=== PATIENT | female | born 1940 | race Caucasian/White ===

== ENCOUNTER → 2018-02-24 13:41 | Outpatient (POV) | payer MEDICARE, SELFPAY | PROVIDERS: Family Provider Family Medicine; PCP Family Medicine; Visit Provider Dermatology | DX: Z00.00 Encounter for general adult medical examination without abnormal findings (principal) ==

== ENCOUNTER → 2018-03-24 13:46 | Outpatient (POV) | payer MEDICARE, SELFPAY | PROVIDERS: Visit Provider Dermatology | DX: Z00.00 Encounter for general adult medical examination without abnormal findings (principal) ==

== ENCOUNTER → 2018-05-26 15:37 | Outpatient (POV) | payer MEDICARE, SELFPAY | PROVIDERS: Family Provider Family Medicine; PCP Family Medicine; Visit Provider Dermatology | DX: Z00.00 Encounter for general adult medical examination without abnormal findings (principal) ==

== ENCOUNTER → 2018-06-02 13:19 | Outpatient (CLI) | payer MEDICARE, SELFPAY ==
--- NOTE | 2018-06-02 13:23 | XR_ITS ---
XR knee LT 2V HISTORY: ITS.REASON: lt knee pain ORDERING PHYSICIAN: Maico Moreno MD PATIENT AGE: 77 years COMPARISON: 05/12/2017 FINDINGS: Nonweightbearing views are performed once again showing an intramedullary erika within the distal femur stabilized by 4 screws. Status post total knee arthroplasty with good alignment of the prosthesis. There is no fracture of the distal femur. There is mild genu varus but not as prominent as the previous exam however, weightbearing views were not performed. IMPRESSION: Status post prior total knee replacement with intramedullary erika stabilizing an old distal femur fracture with mild genu varum
== END ==
PROVIDERS: PCP Family Medicine; Visit Provider Orthopaedic Surgery
DX: M25.562 Pain in left knee (principal)
CPT/HCPCS: 73560

== ENCOUNTER → 2018-06-16 13:29 | Outpatient (REF) | payer MEDICARE, SELFPAY ==
[2018-06-16 14:03] LABS: Blood Urea Nitrogen 15 mg/dL (7-18)
[2018-06-16 14:25] LABS: Aspartate Amino Transferase 11 U/L (15-37)
[2018-06-16 14:27] LABS: Alanine Aminotransferase 23 U/L (12-78); Albumin Level 3.4 gm/dL (3.4-5.0); Alkaline Phosphatase 100 U/L (46-116); Anion Gap 14.5 mEq/L (5-15); Bilirubin,Total 0.5 mg/dL (0.2-1.0); Calcium 8.4 mg/dL (8.5-10.1); Carbon Dioxide 25 mmol/L (21.0-32.0); Chloride 109 mmol/L (98-107); Chol/HDL Ratio 6.6 (1-3.5); Cholesterol 224 mg/dL (140-200); Creatinine,Serum 0.67 mg/dL (0.55-1.02); Estimated Glomerular Filt Rate 86 ml/min (>60); GFR (African American) 104 ML/MIN (>60); Globulin 3.3 gm/dl (1.3-3.2); Glucose 101 mg/dL (74-106); HDL Cholesterol 34 mg/dL (29-89); LDL Cholesterol 152 mg/dL (0-130); Potassium 3.5 mmoL/L (3.5-5.1); Sodium 145 mmol/L (136-145); Thyroid Stimulating Hormone 1.43 uIU/ml (0.358-3.740); Total Protein,Serum 6.7 gm/dL (6.4-8.2); Triglycerides 191 mg/dL (30-200); VLDL Cholesterol 38 mg/dL (0-40)
== END ==
LOC: LAB 13:29
PROVIDERS: Visit Provider Family Medicine
DX: I10 Essential (primary) hypertension (principal); I48.91 Unspecified atrial fibrillation; I20.9 Angina pectoris, unspecified; M81.0 Age-related osteoporosis without current pathological fracture
CPT/HCPCS: 80053; 80061; 84443

== ENCOUNTER → 2018-07-13 13:01 | Outpatient (CLI) | payer MEDICARE, SELFPAY ==
--- NOTE | 2018-07-13 13:03 | CA_ITS ---
PROCEDURE: 2-D M-mode and color Doppler study INDICATIONS FOR THE TEST: Chest pain X COPD Heart Murmur Tobacco Smoking Palpitations Fatigue Syncope Edema HypertensionXDiabetes Mellitus Rheumatic Fever SOBXDOE Obesity HyperlipidemiaX Family History HD Additional History CAD,ABN EKG,PPM,DIZZINESS PATIENT INFORMATION HEIGHT: 63 WEIGHT:148 GENDER: Female B/P:153/71 2-D/M-MODE INTERPRETATION: 2-D MEASUREMENTS OBSERVED VALUES IN CMS Right Ventricular Dimension (RVDd) 1.5 Interventricular Septum (Thickness)(IVsd) 1.1 Left Ventricular Internal Dimensions(LVIDd) 5.7 Left Ventricular Posterior Wall (Thickness)(LVPWd) 1.0 Aortic Root 3.7 Aortic Cusp Separation 1.9 Left Atrial Dimensions (LAD) 3.2 2D 1. Left atrium is mildly enlarged, left ventricle is normal size, mild concentric left ventricular hypertrophy, visually estimated ejection fraction 55% with no obvious regional wall motion abnormality. 2. The right atrium and right ventricle are normal size and contractility., There is a pacemaker significant atrium and right ventricle. 3. The aortic valve is thickened and calcified leaflet continue to display mobility. 4. The mitral and tricuspid valve leaflets are minimally thickened. 5. The pulmonic valve is poorly visualized. 6. No significant pericardial effusion noted. DOPPLER INTERROGATION: Doppler interrogation of the aortic, mitral and tricuspid valvular presence of moderate aortic, moderate mitral and mild tricuspid regurgitation, tricuspid regurgitant jet velocity is insufficient for calculation of the right ventricular systolic pressure, diastolic parameters are inconclusive. CONCLUSION: 1. Mildly left atrium, normal left ventricular size, mild concentric left ventricular hypertrophy, visually estimated ejection fraction 55% with no obvious regional wall motion abnormality, diastolic parameters are inconclusive. There is abnormal septal motion. 2. Moderate aortic, mitral and mild tricuspid regurgitation 3. No significant pericardial effusion noted.
== END ==
PROVIDERS: Family Provider Family Medicine; PCP Family Medicine; Visit Provider Internal Medicine
DX: R06.00 Dyspnea, unspecified (principal); R53.83 Other fatigue; R94.31 Abnormal electrocardiogram [ECG] [EKG]; I25.2 Old myocardial infarction
CPT/HCPCS: 93306

== ENCOUNTER → 2019-04-14 13:00 | Outpatient (CLI) | payer MEDICARE, SELFPAY ==
--- NOTE | 2019-04-14 13:04 | XR_ITS ---
XR hand RT min 3V, XR hand LT min 3V HISTORY: Chronic Right and left hand pain. Hard spot second metacarpal right hand . At left hand weightbearing would not come off ORDERING PHYSICIAN: Amairani Chan MD PATIENT AGE: 78 years COMPARISON: No studies prior to today TECHNIQUE: PA, Oblique and Lateral of Both Right and Left Hand performed RIGHT HAND: Diffuse demineralization of both hands. No acute findings. No fracture nor dislocation. No discrete erosive or destructive changes. . Narrowing at the DIP joints> PIP joints reflecting osteoarthritic changes . Metacarpals intact. Attention is directed to the second metacarpal and I see no discrete abnormalities here nor soft tissue findings to correspond with the palpable density near second metacarpal-as was suggested by history. Borderline narrowing at the fifth MCP joint and first MCP joint. Conclusion right wrist reveals Carpals with normal relationships. Joint spaces well-maintained throughout the carpal and radiocarpal joint right wrist IMPRESSION: right hand.: Osteoarthritic changes at DIP>PIPjoints . Diffuse mineralization LEFT HAND: No fracture or acute findings. The arthritic changes are more pronounced here at the left hand than right. Marked narrowing at DIP joint joint of the long finger with subchondral cystic changes about markedly narrowed joint. Basically ityk-mi-klan appearance at this joint There is also marked narrowing and near cmyl-xs-hvef appearance at the DIP joint of the ring finger. Less pronounced narrowing at the DIP joint of the index and fifth finger. Also less pronounced arthritic changes & Narrowing is seen at the PIP joints of left hand-with most pronounced joint space narrowing fourth PIP joint followed by the fifth PIP joint... Mild second and third narrowing PIP joint Metacarpals appear intact. Wrist included-The carpals joint space is actually fairly well-maintained throughout the radiocarpal joint intact . Small osseous density between the first and second metacarpal base on lateral view likely reflecting long-standing dystrophic or vascular calcification. Only minimal degenerative changes at first carpal metacarpal joint bilaterally. Less than typically seen with osteoarthritis pattern. IMPRESSION.... Left hand..... Arthritic changes changes at DIP & PIP joints, overall more pronounced at the LEFT hand than right . Most likely arthritic changes most severe arthritic changes with subchondral cyst &/ or possibly erosive Osteoarthritis features seen at the DIP joint of the long finger. Basically puvy-vi-uhje appearance at DIP joint of both long finger & ring Finger Left hand
--- NOTE | 2019-04-14 13:04 | XR_ITS ---
XR hand RT min 3V, XR hand LT min 3V HISTORY: Chronic Right and left hand pain. Hard spot second metacarpal right hand . At left hand weightbearing would not come off ORDERING PHYSICIAN: Amairani Chan MD PATIENT AGE: 78 years COMPARISON: No studies prior to today TECHNIQUE: PA, Oblique and Lateral of Both Right and Left Hand performed RIGHT HAND: Diffuse demineralization of both hands. No acute findings. No fracture nor dislocation. No discrete erosive or destructive changes. . Narrowing at the DIP joints> PIP joints reflecting osteoarthritic changes . Metacarpals intact. Attention is directed to the second metacarpal and I see no discrete abnormalities here nor soft tissue findings to correspond with the palpable density near second metacarpal-as was suggested by history. Borderline narrowing at the fifth MCP joint and first MCP joint. Conclusion right wrist reveals Carpals with normal relationships. Joint spaces well-maintained throughout the carpal and radiocarpal joint right wrist IMPRESSION: right hand.: Osteoarthritic changes at DIP>PIPjoints . Diffuse mineralization LEFT HAND: No fracture or acute findings. The arthritic changes are more pronounced here at the left hand than right. Marked narrowing at DIP joint joint of the long finger with subchondral cystic changes about markedly narrowed joint. Basically iica-yq-cteb appearance at this joint There is also marked narrowing and near bnza-uz-ekhv appearance at the DIP joint of the ring finger. Less pronounced narrowing at the DIP joint of the index and fifth finger. Also less pronounced arthritic changes & Narrowing is seen at the PIP joints of left hand-with most pronounced joint space narrowing fourth PIP joint followed by the fifth PIP joint... Mild second and third narrowing PIP joint Metacarpals appear intact. Wrist included-The carpals joint space is actually fairly well-maintained throughout the radiocarpal joint intact . Small osseous density between the first and second metacarpal base on lateral view likely reflecting long-standing dystrophic or vascular calcification. Only minimal degenerative changes at first carpal metacarpal joint bilaterally. Less than typically seen with osteoarthritis pattern. IMPRESSION.... Left hand..... Arthritic changes changes at DIP & PIP joints, overall more pronounced at the LEFT hand than right . Most likely arthritic changes most severe arthritic changes with subchondral cyst &/ or possibly erosive Osteoarthritis features seen at the DIP joint of the long finger. Basically lbre-nd-tinx appearance at DIP joint of both long finger & ring Finger Left hand
== END ==
PROVIDERS: PCP Family Medicine; Visit Provider Orthopaedic Surgery
DX: M79.641 Pain in right hand (principal); M79.642 Pain in left hand
CPT/HCPCS: 73130

== ENCOUNTER → 2019-05-22 14:28 | Outpatient (POV) | payer MEDICARE, SELFPAY | PROVIDERS: Visit Provider Specialist | DX: R20.0 Anesthesia of skin (principal); M79.602 Pain in left arm; M79.601 Pain in right arm | CPT/HCPCS: 95886; 95908 ==

== ENCOUNTER → 2019-06-02 09:58 | Outpatient (CLI) | payer MEDICARE, SELFPAY ==
--- NOTE | 2019-06-02 10:09 | MM_ITS ---
MM Dig screening mamm BI w/CAD CAD Screening COMPARISON: None, previous mammograms are not available for review INDICATION: There is a history of breast cancer patient maternal aunt. TECHNIQUE: Standard CC and MLO images were obtained. R2 CAD reviewed. FINDINGS: Mild to moderate fibroglandular densities are seen in the central portions and upper outer quadrants of both breasts and the findings are fairly symmetrical bilaterally. There are benign-appearing calcifications in each breast along with arterial calcification right breast. There are mole markers on each breast. There is no suspicious lesion and there are no suspicious microcalcifications. IMPRESSION: Mild to moderate breast density with no suspicious lesion seen BI-RADS Category: 2 Benign Finding(s) RECOMMENDED FOLLOW-UP: 1YR - 1 YEAR FOLLOW-UP (A letter has been sent to the patient regarding results of the study.)
--- NOTE | 2019-06-02 10:11 | XR_ITS ---
XR DEXA axial skeleton COMPARISON: None HISTORY: Postmenopausal, history of fracture as an adult TECHNIQUE: DEXA scanning lumbar spine and bilateral hips FINDINGS: The average BMD L1-L4 lumbar spine is 0.668 g/sq cm and the T score is -4.3. Left hip: The total BMD left hip is 0.5 to 3 g/sq cm with a T score -3.8. The left femoral neck is 0.555 g/sq cm with T score -3.5. IMPRESSION: T score is in the osteoporosis range and definitely consider treatment and suggest a follow-up study in one year to assess response to treatment.
== END ==
PROVIDERS: PCP Family Medicine; Visit Provider Family Medicine
DX: Z12.31 Encounter for screening mammogram for malignant neoplasm of breast (principal); Z78.0 Asymptomatic menopausal state
CPT/HCPCS: 77067; 77080

== ENCOUNTER → 2019-06-16 14:06 | Outpatient (CLI) | payer MEDICARE, SELFPAY ==
--- NOTE | 2019-06-16 14:19 | XR_ITS ---
XR elbow RT min 3V HISTORY: ITS.REASON: elbow pain ORDERING PHYSICIAN: Amairani Chan MD PATIENT AGE: 78 years COMPARISON: None FINDINGS: There is mild osteopenia. There is orthopedic hardware with compression plate and fixation screws along the medial distal humerus. The alignment and joint spaces appear to be normal. There is ossific density with corticated margins just medial to the radial head. There is no joint effusion or acute fracture. Impression: Distal humeral surgery. Medial bone density could be heterotopic bone formation or sequela from prior surgery.
--- NOTE | 2019-06-16 14:19 | XR_ITS ---
XR shoulder RT min 2V HISTORY: ITS.REASON: shoulder pain ORDERING PHYSICIAN: Amairani Chan MD PATIENT AGE: 78 years Comparison: None FINDINGS: There is generalized moderate osteopenia. Joint spaces are normal. There is no acute fracture or subluxation. There are stable calcific densities in right lung which were also seen chest film from 06/22/2017. Soft tissues are unremarkable. Impression: Osteopenia. No acute process. Stable benign right lung calcifications.
== END ==
PROVIDERS: PCP Family Medicine; Visit Provider Orthopaedic Surgery
DX: M25.521 Pain in right elbow; M25.511 Pain in right shoulder
CPT/HCPCS: 73030; 73080

== ENCOUNTER 2020-06-25 13:01 | Outpatient (RCR) | payer MEDICARE, SELFPAY | END 2020-07-23 10:49 | disposition home or self-care (01) | LOC: PT 13:01 | PROVIDERS: PCP Family Medicine; Visit Provider Family Medicine | DX: J44.9 Chronic obstructive pulmonary disease, unspecified (principal); M15.0 Primary generalized (osteo)arthritis; Z74.09 Other reduced mobility | CPT/HCPCS: 97542 ==

== ENCOUNTER 2021-05-01 19:56 | Observation (INO) | payer MEDICARE, SELFPAY ==
--- NOTE | 2021-05-01 19:39 | ECG_ITS ---
APPROVED REPORT Exam: Resting ECG HR:95 bpm ECG Measurements Heart Rate 95 AXES AL 176 P 53 QRSd 186 QRS -45 QT 436 T 113 QTc 547 Conclusion Electronic ventricular pacemaker Electronically signed by : Adriel Kebede, 05/03/2021 10:54:44
[2021-05-01 19:56] VITALS: BP 162/79; PULSE 95; RESP 21; TEMP 36.4; O2SAT 90; BMI 24.7
--- NOTE | 2021-05-01 20:05 | XR_ITS ---
PROCEDURE INFORMATION: Exam: XR Chest Exam date and time: 05/01/2021 8:05 PM Age: 80 years old Clinical indication: Angina; Patient HX: Chest pain; Additional info: Cp TECHNIQUE: Imaging protocol: XR of the chest. Views: 1 view. COMPARISON: CR CXR1 CHEST-PORTABLE 06/22/2017 8:47 PM. Prior report not available. FINDINGS: Tubes, catheters and devices: Overlying oxygen tubing and cardiac electrodes. Lungs: There is chronic nodular density projected over the right upper lung of approximately 1.6 cm, minimally enlarged compared with 1.4 cm on the previous study from 2016, probably chronic granulomatous change and scarring, less likely an indolent neoplasm. This would be more accurately evaluated with CT. No other definite mass or consolidation. Mild hypoventilation/low lung volumes with bilateral infrahilar bronchovascular crowding. Pleural spaces: Unremarkable. No significant pleural effusion. No pneumothorax. Heart/Mediastinum: Cardiomegaly. Dual lead left subclavian cardiac pacemaker. Vasculature: Tortuous or ectatic thoracic aorta with calcified plaque. Bones/joints: Osteopenia. Spinal degenerative changes. Gastrointestinal tract: Gaseous distention of bowel noted in the upper abdomen. No free intraperitoneal/subdiaphragmatic air seen. IMPRESSION: 1. A hazy nodular 1.6 cm density projected over the right upper lung, minimally enlarged compared with 06/22/2017. This is probably chronic granulomatous change and scarring, less likely would be indolent neoplasm or active infection. Previous chest CTA images and report are not available for comparison. 2. Cardiomegaly, cardiac pacemaker. No definite vascular congestion. 3. Additional nonemergency and chronic findings as above.
[2021-05-01 20:17] LABS: Adenovirus,PCR Not Detected (NotDetected); Bordetella Pertussis Not Detected (NotDetected); Chlamydophila Pneumoniae, PCR Not Detected (NotDetected); Coronavirus 19, PCR Not Detected (NotDetected); Coronavirus 229E Not Detected (NotDetected); Coronavirus NL63 Not Detected (NotDetected); Coronavirus OC43 Not Detected (NotDetected); Coronovirus HKU1,PCR Not Detected (NotDetected); Human Metapneumovirus Not Detected (NotDetected); Influenza A, PCR Not Detected (NotDetected); Influenza AH1, 2009 Not Detected (NotDetected); Influenza AH1, PCR Not Detected (NotDetected); Influenza AH3,PCR Not Detected (NotDetected); Influenza B, PCR Not Detected (NotDetected); Mycoplasma Pneumoniae, PCR Not Detected (NotDetected); Parainfluenza 1, PCR Not Detected (NotDetected); Parainfluenza 2, PCR Not Detected (NotDetected); Parainfluenza 3, PCR Not Detected (NotDetected); Parainfluenza 4, PCR Not Detected (NotDetected); Respiratory Syncytial Virus Not Detected (NotDetected); Rhinovirus/Enterovirus Not Detected (NotDetected)
[2021-05-01 20:19] LABS: Basophils # 0.1 K/mm3 (0-0.2); Basophils % 0.6 % (0.1-2.0); Eosinophils # 0.1 K/mm3 (0.0-0.4); Eosinophils % 1.8 % (0.1-12.0); Hematocrit 41.4 % (37.0-47.0); Hemoglobin 14.3 g/dL (12.2-16.2); Mean Corpuscular HGB Conc 34.5 g/dL (31.8-35.4); Mean Corpuscular Hemoglobin 32.7 pg (27.0-31.2); Mean Corpuscular Volume 94.9 fl (81-99); Monocytes # 0.3 K/mm3 (0.1-1.0); Monocytes % 3.7 % (1.7-9.3); Neutrophils # 4.5 K/mm3 (1.8-7.8); Neutrophils % 56.9 % (37.0-80.0); Platelet Count 250 K/mm3 (142-424); Red Blood Count 4.36 M/mm3 (4.20-5.40); Red Cell Distribution Width 14.2 % (11.5-17.5)
[2021-05-01 20:22] LABS: Alanine Aminotransferase 19 U/L (12-78); Albumin Level 4.6 g/dl (3.5-5.0); Alkaline Phosphatase 130 U/L (38-126); Anion Gap 15.2 mEq/L (5-15); Aspartate Amino Transferase 35 U/L (14-36); Bilirubin,Direct 0.9 mg/dl (0.0-0.4); Bilirubin,Indirect 0.2 mg/dL (0.0-0.9); Bilirubin,Total 1.1 mg/dl (0.2-1.3); Bilirubin,Unconjugated 0.2 mg/dL (0.0-1.1); Blood Urea Nitrogen 12 mg/dl (7-17); Calcium 8.9 mg/dl (8.4-10.2); Carbon Dioxide 24 mmol/L (22.0-30.0); Chloride 108 mmol/L (98-107); Creatinine Clearance Estimated 46 mL/min (50-200); Estimated Glomerular Filt Rate 81 ml/min (>60); GFR (African American) 98 ML/MIN (>60); Glucose 112 mg/dl (74-100); Potassium 4.2 mmoL/L (3.5-5.1); Sodium 143 mmol/L (136-145); Total Protein,Serum 7.9 g/dl (6.3-8.2)
[2021-05-01 20:27] LABS: C-Reactive Protein 9.9 mg/L (0-4)
--- NOTE | 2021-05-01 20:29 | HMH.EDCP ---
ED Disposition Clinical Impression: Unstable angina pectoris Disposition: Admitted as Observation Condition on Discharge: Good Referrals: Barber Yousif MD [Primary Care Provider] - - Critical Care Critical Care Time: No Attestation: On 05/01/21, the high probability of a clinically significant, sudden or life threatening deterioration of the following system(s) required my full and direct attention, intervention and personal management. The time I documented below is in addition to time spent performing reported procedures but includes the following listed in this critical care notation. Medical Decision Making - Medical Records Medical records reviewed: Yes: I reviewed the patient's medical records. - Rafael Inquiry Pt receiving controlled substance: No Vital Signs: 05/01/21 19:56 Temperature 97.6 F Temperature Source Oral Pulse Rate [Apical] 95 H Respiratory Rate 21 Blood Pressure [Left Arm] 162/79 H Blood Pressure Mean [Left Arm] 106 Blood Pressure Source [Left Arm] Automatic Cuff Blood Pressure Position [Left Arm] Sitting 02 Sat by Pulse Oximetry 90 L Oxygen Delivery Method Room Air - Lab Data Lab results reviewed: Yes: I reviewed the patient's lab results. Lab Results 05/01/21 20:00: WBC 8.0, RBC 4.36, Hgb 14.3, Hct 41.4, MCV 94.9, MCH 32.7 H, MCHC 34.5, RDW 14.2, Plt Count 250, MPV 8.0, Neut % (Auto) 56.9, Lymph % (Auto) 37.0, [place] % (Auto) 3.7, Eos % (Auto) 1.8, Baso % (Auto) 0.6, Neut # (Auto) 4.5, Lymph # (Auto) 3.0, [place] # (Auto) 0.3, Eos # (Auto) 0.1, Baso # (Auto) 0.1, ESR 40 H 05/01/21 20:00: Sodium 143, Potassium 4.2, Chloride 108 H, Carbon Dioxide 24, Anion Gap 15.2 H, BUN 12, Creatinine 0.70, Estimated Creat Clear 46, Estimated GFR 81, Est GFR ( Amer) 98, Glucose 112 H, Calcium 8.9, Total Bilirubin 1.1, Direct Bilirubin 0.9 H, Conjugated Bilirubin 0.0, Indirect Bilirubin 0.2, Unconjugated Bilirubin 0.2, AST 35, ALT 19, Alkaline Phosphatase 130 H, Troponin I < 0.01, C-Reactive Protein 9.9 H, Total Protein 7.9, Albumin 4.6, Procalcitonin 0.055 Result diagrams: 05/01/21 20:00 05/01/21 20:00 Orders (Tests/Meds): ED MEDICATIONS Generic Name Dose Route Start Last Admin Trade Name Freq PRN Reason Stop Dose Admin Sodium Chloride 1,000 mls @ 999 mls/hr 05/01/21 20:15 05/01/21 20:20 Sod Chlor 0.9% 1000ml Bag IV 05/01/21 21:15 999 mls/hr .Q1H1M GRISEL Administration Discontinued Medications Generic Name Dose Route Start Last Admin Trade Name Freq PRN Reason Stop Dose Admin Aspirin 324 mg 05/01/21 20:20 05/01/21 20:05 Aspirin 81mg Chewable Tablet PO 05/01/21 20:21 324 mg ONCE ONE Administration Nitroglycerin 1 gm 05/01/21 20:13 05/01/21 20:20 Nitroglycerin 1 Gm Ointment TD 05/01/21 20:14 1 gm ONCE ONE Administration ORDERS Category Date Time Status BNP [Brain Natriuretic Peptide] Stat Lab 05/01/21 20:00 Received Full Resp Panel w/COVID ([facility]) Routine Lab 05/01/21 20:00 Received Lactic Acid Stat Lab 05/01/21 20:05 Ordered Troponin I Q3H Lab 05/01/21 23:15 Ordered Troponin I Q3H Lab 05/02/21 02:15 Ordered Blood Culture Stat Micro 05/01/21 20:05 Ordered - Radiology Data #1 Image(s): Chest Image Reviewed: Yes I reviewed the patient's radiology image Preliminary Findings: Abnormal (chronic changes ) - ECG Data Tracing #1 Arrhythmias present: other (paced) - Physician Consults Physician Consulted: dejah Reason -: Admission Medical Decision Narrative: pt with chest pain and will be admitted for card eval Chest Pain HPI - General Chief Complaint: Chest Pain Stated Complaint: Chest Pain Time Seen by Provider: 05/01/21 20:00 Mode of Arrival: Family Vehicle Source of Information: Patient, Medical Record Limitations: No Limitations Description of Symptoms (Recalled from ER Triage Doc. by RN): Pt c/o chest pain and soa that started this morning. She is unsure of what time and did not come to ED
[2021-05-01 20:30] VITALS: BP 170/95; PULSE 91; RESP 14; O2SAT 94
[2021-05-01 20:39] LABS: Troponin I < 0.01 ng/ml (0.00-0.034)
[2021-05-01 20:42] LABS: Procalcitonin 0.055 ng/mL (0.0-2.0)
[2021-05-01 20:44] LABS: Erythrocyte Sedimentation Rate 40 mm/hr (0-30)
[2021-05-01 21:00] VITALS: BP 155/77; PULSE 94; RESP 18; O2SAT 96
[2021-05-01 21:17] LABS: NT Pro Brain Natriuretic Pep. 1260 pg/mL (0-450)
[2021-05-01 21:30] VITALS: BP 154/84; PULSE 94; RESP 18; O2SAT 95
--- NOTE | 2021-05-01 21:59 | PC.NURSE ---
Pt does not know what medication she takes and staff is unable to verify with external pharmacy or pt's visitor at bedside.
--- NOTE | 2021-05-01 22:44 | PC.NURSE ---
Report called to ORION Spangler at this time.
[2021-05-01 22:46] VITALS: BP 134/83; PULSE 89; RESP 20; TEMP 36.6; O2SAT 96
[2021-05-01 22:46] LABS: Microscopic, Urine URINE MICROSCOPIC (MICROSCOPIC)
[2021-05-01 22:47] LABS: Bilirubin,Urine Negative (Negative); Blood, Urine Negative (Negative); Color,Urine YELLOW (Yellow); Glucose,Urine (UA) Negative (Negative); Ketones,Urine Negative (Negative); Leukocyte Esterase,Urine 2+ (Negative); Nitrate,Urine POSITIVE (Negative); PH,Urine 5.5 (5.0-8.5); Protein,Urine Negative (Negative); Specific Gravity, Urine 1.025 (1.005-1.030); Urobilinogen,Urine 0.2 EU/dl (0.2)
[2021-05-01 22:50] LABS: Appearance,Urine Cloudy (Clear)
[2021-05-01 22:55] LABS: Bacteria,Urine 4+ /lpf
[2021-05-01 23:04] VITALS: BP 148/72; PULSE 85; RESP 18; TEMP 36.4; O2SAT 96; BMI 25.2
--- NOTE | 2021-05-01 23:04 | PC.NURSE ---
PT ARRIVED TO FLOOR VIA W/C FROM ED W/STAFF AT 2303
[2021-05-01 23:56] LABS: Troponin I < 0.01 ng/ml (0.00-0.034)
[2021-05-02] VITALS: PULSE 77
[2021-05-02 02:39] LABS: Troponin I < 0.01 ng/ml (0.00-0.034)
[2021-05-02 03:27] VITALS: BP 139/75; PULSE 78; RESP 18; TEMP 36.5; O2SAT 95
[2021-05-02 03:28] VITALS: RESP 18
[2021-05-02 04:00] VITALS: PULSE 70
--- NOTE | 2021-05-02 04:40 | PC.NURSE ---
pt admitted with chest pain. telemetry reads paced. pt reports pain and prn meds given without relief. new orders obtained and given with relief. alert and oriented. iv patent and infusing. standby assist with ambulation. vss. call light in reach. will continue to monitor
[2021-05-02 05:21] VITALS: BMI 25.4
--- NOTE | 2021-05-02 06:00 | PC.NURSE ---
Kelsi STANLEY NOTIFIED OF CONSULT.
[2021-05-02 06:12] LABS: Chloride 110 mmol/L (98-107); Sodium 140 mmol/L (136-145)
[2021-05-02 06:13] LABS: Potassium 3.6 mmoL/L (3.5-5.1)
[2021-05-02 06:16] LABS: Anion Gap 10.6 mEq/L (5-15); Blood Urea Nitrogen 13 mg/dl (7-17); Calcium 8.3 mg/dl (8.4-10.2); Carbon Dioxide 23 mmol/L (22.0-30.0); Creatinine Clearance Estimated 48 mL/min (50-200); Estimated Glomerular Filt Rate 81 ml/min (>60); GFR (African American) 98 ML/MIN (>60); Glucose 106 mg/dl (74-100)
[2021-05-02 06:25] LABS: Basophils # 0.1 K/mm3 (0-0.2); Basophils % 0.6 % (0.1-2.0); Eosinophils # 0.2 K/mm3 (0.0-0.4); Eosinophils % 2.1 % (0.1-12.0); Hematocrit 36.1 % (37.0-47.0); Lymphocytes # 2.5 K/mm3 (0.7-4.5); Lymphocytes % 31.1 % (10-50); Mean Corpuscular HGB Conc 34.2 g/dL (31.8-35.4); Mean Corpuscular Hemoglobin 32.6 pg (27.0-31.2); Mean Corpuscular Volume 95.3 fl (81-99); Mean Platelet Volume 8.1 fl (7.4-10.4); Monocytes # 0.3 K/mm3 (0.1-1.0); Neutrophils # 4.9 K/mm3 (1.8-7.8); Neutrophils % 62.1 % (37.0-80.0); Platelet Count 208 K/mm3 (142-424); Red Blood Count 3.79 M/mm3 (4.20-5.40); Red Cell Distribution Width 14.3 % (11.5-17.5); White Blood Count 7.9 K/mm3 (4.8-10.8)
--- NOTE | 2021-05-02 07:21 | HMH.CNCARD ---
History of Present Illness Consult date: 05/02/21 Consult reason: chest pain Chief complaint: chest pain Additional Medical History:: 1. COPD A. Denies tobacco use. B. Secondhand smoke exposure 2. Severe Anxiety 3. Hyperlipidemia 4. AAA, 5.2 cm, 2014 (per patient) A. Ultrasound, 04/2016, normal. 5. hypertension A. Echo, 2018, 1. Mildly left atrium, normal left ventricular size, mild concentric left ventricular hypertrophy, visually estimated ejection fraction 55% with no obvious regional wall motion abnormality, diastolic parameters are inconclusive. There is abnormal septal motion. 2. Moderate aortic, mitral and mild tricuspid regurgitation 3. No significant pericardial effusion noted 6. CVA in past 7. CAD A. [facility], 2017 ANGIOGRAPHIC RESULTS: 1. The left main artery large caliber and normal 2. The left anterior descending artery proximally has mild luminal irregularities of 10% with mild luminal irregularities of 10% in the mid segment 3. The circumflex artery is a dominant vessel and has mild less than 10% luminal irregularities 4. The right coronary artery is a nondominant vestigial vessel which has a 90% stenosis just proximal to 2 very small marginal branches. A Kugel collateral is identified from the sinoatrial branch distally. The ostium of this right coronary artery is 2.5 mm however the proximal right coronary artery is 0.5 mm and at the stenotic area it is less than 1 mm in diameter 5. The HINDS ventriculogram reveals hyperdynamic 75% 6. The left ventricular end-diastolic pressure 10 mmHg IMPRESSION: 1. Mild luminal irregularities in the LAD and dominant circumflex artery 2. Severe stenosis and a very small vestigial nondominant right coronary artery which is clinically insignificant 3. Slightly hyperdynamic ejection fraction 4. Normal left ventricular end-diastolic pressur PLAN: 1. Medical management 2. Risk factor modification 3. I cannot manage in any clinical scenario in which performing angioplasty of the small right coronary artery would exist. 8. Pacemaker in situ, 05/2018, due to symptomatic bradycardia History of present illness: 80-year-old white female with known coronary artery disease by cardiac catheterization 2016 with recommendation for medical therapy and mild to moderate aortic regurgitation on echocardiogram from 2018 was admitted last evening for progressive chest pain. Patient states she took nitroglycerin at home without significant relief and came to the emergency department when the chest pain continued. Initial troponin was normal and EKG nondiagnostic due to paced rhythm. Nitroglycerin paste was placed and symptoms did resolve overnight. With no recurrence occurring this morning. Troponins have been normal x3. Patient was last seen in our office in 2018 and has been seeing cardiology in [place] due to plans for potential surgery of her left leg. She reports having an echocardiogram earlier this year and being told of leaky valves but no need for further intervention at that time. Patient also relates about a 6-month history of increasing fatigue that is quite troubling to her. She is on chronic oxygen therapy due to COPD related to secondhand smoke. [facility] History Medical History: Reports:: Asthma, Cancer, Congestive Heart Failure, Chronic Obstructive Pulmonary Disease (COPD), Cerebrovascular Accident, Gastroesophageal Reflux Disease(GERD), Hyperlipidemia, Hypertension, Transient Ischemic Attacks (TIA) Denies:: Diabetes Mellitus Type 1, Diabetes Mellitus Type 2 *Have you ever received a pneumonia vaccine?: No *Have you received a flu vaccine this season?: No Other Medical History: Reports: Anemia, Arthritis, Other Laterality Cases: Bilateral: Tonsillectomy Other Surgeries: Yes: Cancer Surgery, Cholecystectomy, Hysterectomy-Total Fractures: Yes - *Social History Smoking Status: Never smoker Alcohol Intake: never Alcohol Intake Frequency:: other Substance Use Type:
[2021-05-02 07:50] VITALS: BP 139/77; PULSE 74; RESP 18; TEMP 36.7; O2SAT 96
[2021-05-02 08:00] VITALS: PULSE 70
--- NOTE | 2021-05-02 08:36 | P.CONPHA_ITS ---
[facility] Pharmacy VTE Monitoring - Patient Demographics Admission date: 05/02/21 Report Date: 05/02/21 Time: 08:37 Allergies/Adverse Reactions: Patient Allergies coconut [From COCONUT (FOOD/DRUG)] Allergy (Intermediate, Verified 06/16/19 13:09) I-RASH codeine Allergy (Intermediate, Verified 06/16/19 13:09) I-RASH, NAUSEA/VOMITING Penicillins Allergy (Intermediate, Verified 06/16/19 13:09) I-RASH tuna oil Allergy (Verified 05/02/21 07:45) Rash levofloxacin Adverse Reaction (Mild, Verified 06/16/19 13:09) NA-NAUSEA/VOMITING Height: 1.6 m Weight: 65.317 kg Patient Problems: Current Active Problems Unstable angina pectoris (Acute) Hyperlipidemia (Chronic) Hypertensive disorder (Chronic) Coronary arteriosclerosis (Chronic) - VTE Risk Labs: VTE Related Lab Results Hgb 14.3 g/dL (12.2-16.2) 05/01/21 20:00 Hct 36.1 % (37.0-47.0) L 05/02/21 05:42 Plt Count 208 K/mm3 (142-424) 05/02/21 05:42 BUN 13 mg/dl (7-17) 05/02/21 05:42 Creatinine 0.70 mg/dl (0.52-1.04) 05/02/21 05:42 Estimated Creat Clear 48 mL/min (50-200) 05/02/21 05:42 Was VTE Risk Assessment Performed: Yes VTE Score: 4 VTE Risk Level: Low Risk Clinical Trial Participant: No - Prophylaxis VTE Prophylaxis Ordered?: Yes Types of VTE Prophylaxis: TEDS Knee High
[2021-05-02 08:58] LABS: Hemoglobin 12.3 g/dL (12.2-16.2)
--- NOTE | 2021-05-02 11:06 | HMH.HPDC ---
<Jessie Feng - Last Filed: 05/02/21 11:06> General - General Admission date:: 05/01/21 Discharge date: 05/02/21 *Admission Date: 05/02/21 *Chief complaint: chest pain *History of present illness: Ms. Basurto is a 80 year old female with known coronary artery disease by cardiac cath in 2017. She also had mild to moderate aortic regurgitation seen on an echo in 2018. She states she always has chest pain but 2 nights ago the pain was worse than normal. It was all on the left side of her chest. It did go away but came back again last night. It radiated up into her neck and down her left arm and through to her back. She took nitroglycerin with no relief and she therefore presented to the emergency room for evaluation. Her troponins were normal and her EKG was nondiagnostic. Nitroglycerin paste was placed and she had no further chest pain overnight. She is followed by Dr. Parson in [place] and last saw her on March 21. She does not have a another scheduled follow-up appointment. [facility] History I have reviewed the patient's past medical history: Yes Medical History: Reports:: Asthma, Cancer, Congestive Heart Failure, Chronic Obstructive Pulmonary Disease (COPD), Coronary Artery Disease, Cerebrovascular Accident, Gastroesophageal Reflux Disease(GERD), Hyperlipidemia, Hypertension, Transient Ischemic Attacks (TIA) Denies:: Diabetes Mellitus Type 1, Diabetes Mellitus Type 2 *Have you ever received a pneumonia vaccine?: No *Have you received a flu vaccine this season?: No Other Medical History: Reports: Anemia, Arthritis, Other Laterality Cases: Bilateral: Tonsillectomy Other Surgeries: Yes: Cancer Surgery, Cholecystectomy, Hysterectomy-Total Fractures: Yes - *Social History Smoking Status: Never smoker Alcohol Intake: never Alcohol Intake Frequency:: other Substance Use Type: denies use *Occupational Status:: retired Housing: house Household Members: none *Travel in the last 8 weeks: None Family Hx:: Cancer, Heart Attack Review of Systems - Constitutional Reports fatigue, Reports weakness, Denies fever(s) - Eyes Denies blurry vision, Denies double vision - ENT Denies nasal congestion, Denies sore throat - *Cardiovascular Reports chest pain, Reports shortness of breath, Reports radiating jaw, neck or arm pain - *Respiratory Reports cough, Reports shortness of breath - *Gastrointestinal Denies abdominal pain, Denies loose stools, Denies nausea, Denies vomiting - *Genitourinary Denies difficulty urinating, Denies painful urination - *Musculoskeletal Denies joint pain - *Neurologic Reports headache(s), Reports weakness, Denies localized weakness, Denies dizziness Exam Vital signs and Labs for Last 24 Hours: Temp Pulse Resp BP Pulse Ox 98.0 F 74 18 139/77 96 05/02/21 07:50 05/02/21 07:50 05/02/21 07:50 05/02/21 07:50 05/02/21 07:50 Laboratory Results - last 24 hr 05/01/21 20:00: Chlamy pneumoniae PCR Not detected, Adenovirus (PCR) Not detected, B. pertussis DNA (PCR) Not detected, Coronavirus OC43 (PCR) Not detected, Coronavirus HKU1 (PCR) Not detected, Coronavirus 229E (PCR) Not detected, SARS-CoV-2 (PCR) Not detected, Coronavirus NL63 (PCR) Not detected, Human Metapneumovir PCR Not detected, Influenza A (H1) PCR Not detected, Influ A (H1N1/09) PCR Not detected, Influenza A (H3) PCR Not detected, Influenza Type A (PCR) Not detected, Influenza Type B (PCR) Not detected, M. pneumoniae (PCR) Not detected, Parainfluenza 1 (PCR) Not detected, Parainfluenza 2 (PCR) Not detected, Parainfluenza 3 (PCR) Not detected, Parainfluenza 4 (PCR) Not detected, RSV (PCR) Not detected, Entero/Rhino (PCR) Not detected 05/01/21 20:00: WBC 8.0, RBC 4.36, Hgb 14.3, Hct 41.4, MCV 94.9, MCH 32.7 H, MCHC 34.5, RDW 14.2, Plt Count 250, MPV 8.0, Neut % (Auto) 56.9, Lymph % (Auto) 37.0, [place] % (Auto) 3.7, Eos % (Auto) 1.8, Baso % (Auto) 0.6, Neut # (Auto) 4.5, Lymph # (Auto) 3.0, [place] # (Auto) 0.3, Eos # (Auto) 0.1, Baso
== END 2021-05-02 10:37 | disposition home or self-care (01) ==
LOC: ER 21:03 → 2ND 23:07
PROVIDERS: Admitting Provider Family Medicine; Emergency Provider Emergency Medicine; PCP Family Medicine; Visit Provider Family Medicine
DX: I25.110 Atherosclerotic heart disease of native coronary artery with unstable angina pectoris (principal); I11.0 Hypertensive heart disease with heart failure; I50.9 Heart failure, unspecified; Z95.0 Presence of cardiac pacemaker; Z86.73 Personal history of transient ischemic attack (TIA), and cerebral infarction without residual deficits; E78.5 Hyperlipidemia, unspecified; K21.9 Gastro-esophageal reflux disease without esophagitis; J44.9 Chronic obstructive pulmonary disease, unspecified; Z79.899 Other long term (current) drug therapy; Z99.81 Dependence on supplemental oxygen; N39.0 Urinary tract infection, site not specified
CPT/HCPCS: 36415; 71045; 80048; 80076; 81001; 83605; 83880; 84145; 84484; 85025; 85651; 86140; 87040; 87086; 87088; 87186; 87581; 87633; 87798; 93005; 93306; 96365; 99284; G0378

== ENCOUNTER → 2021-07-09 09:24 | Outpatient (CLI) | payer MEDICARE, SELFPAY ==
--- NOTE | 2021-07-09 09:27 | US_ITS ---
PROCEDURE: US ABD. AORTA SCREENING CLINICAL INDICATION: known AAA COMPARISON: CT CTAC CTA-CHEST from 06/22/2017 FINDINGS: The abdominal aorta is not well delineated due to overlying bowel gas. Segments of the aorta have an unremarkable appearance at approximately 2 cm in diameter. If there is indeed a history of aneurysm then would suggest CT for further evaluation. IMPRESSION: Limited evaluation of the aorta with no obvious aneurysm. Consider CT for further evaluation Dictated by: Sahil Banks MD 07/09/2021 16:37 Sahil Banks MD in [place] 07/09/2021 16:37
[2021-07-09 12:24] LABS: Chloride 108 mmol/L (98-107)
[2021-07-09 12:25] LABS: Potassium 4.3 mmoL/L (3.5-5.1); Sodium 143 mmol/L (136-145)
[2021-07-09 12:28] LABS: Anion Gap 14.3 mEq/L (5-15); Blood Urea Nitrogen 15 mg/dl (7-17); Calcium 9.1 mg/dl (8.4-10.2); Carbon Dioxide 25 mmol/L (22.0-30.0); Estimated Glomerular Filt Rate 81 ml/min (>60); GFR (African American) 98 ML/MIN (>60); Glucose 112 mg/dl (74-100)
[2021-07-09 12:36] LABS: NT Pro Brain Natriuretic Pep. 219 pg/mL (0-450)
== END ==
LOC: RAD 09:27
PROVIDERS: PCP Family Medicine; Visit Provider Internal Medicine Cardiovascular Disease
DX: E78.5 Hyperlipidemia, unspecified (principal); I10 Essential (primary) hypertension; I20.9 Angina pectoris, unspecified; I71.4 Abdominal aortic aneurysm, without rupture; Z95.0 Presence of cardiac pacemaker; R06.02 Shortness of breath
CPT/HCPCS: 36415; 76705; 80048; 83880

== ENCOUNTER 2021-07-21 22:30 | Emergency (ER) | payer MEDICARE, SELFPAY ==
[2021-07-21 22:31] VITALS: BP 169/86; PULSE 97; RESP 24; TEMP 36.6; O2SAT 92; BMI 24.7
--- NOTE | 2021-07-21 22:43 | ECG_ITS ---
APPROVED REPORT Exam: Resting ECG HR:100 bpm ECG Measurements Heart Rate 100 AXES AZ 172 P 38 QRSd 192 QRS -49 QT 426 T 109 QTc 549 Conclusion Electronic ventricular pacemaker Electronically signed by : Adriel Kebede MD 07/22/2021 12:07:20
[2021-07-21 23:08] LABS: Basophils # 0.1 K/mm3 (0-0.2); Basophils % 0.9 % (0.1-2.0); Eosinophils # 0.2 K/mm3 (0.0-0.4); Eosinophils % 1.7 % (0.1-12.0); Hematocrit 44.3 % (37.0-47.0); Hemoglobin 14.8 g/dL (12.2-16.2); Lymphocytes # 2.4 K/mm3 (0.7-4.5); Mean Corpuscular HGB Conc 33.5 g/dL (31.8-35.4); Mean Corpuscular Volume 98.7 fl (81-99); Mean Platelet Volume 8.1 fl (7.4-10.4); Monocytes # 0.3 K/mm3 (0.1-1.0); Monocytes % 3.2 % (1.7-9.3); Neutrophils % 70.1 % (37.0-80.0); Platelet Count 270 K/mm3 (142-424); Red Blood Count 4.49 M/mm3 (4.20-5.40); Red Cell Distribution Width 14.2 % (11.5-17.5)
--- NOTE | 2021-07-21 23:13 | HMH.EDSOB ---
ED Disposition Clinical Impression: History of cardiac pacemaker in situ, SOB (shortness of breath) Disposition: Left Against Medical Advice Condition on Discharge: Good Instructions: DI for Shortness of Breath Additional Instructions: call pcp in am Referrals: Barber Yousif MD [Primary Care Provider] - - Critical Care Critical Care Time: No Attestation: On 07/21/21, the high probability of a clinically significant, sudden or life threatening deterioration of the following system(s) required my full and direct attention, intervention and personal management. The time I documented below is in addition to time spent performing reported procedures but includes the following listed in this critical care notation. Medical Decision Making - Medical Records Medical records reviewed: Yes: I reviewed the patient's medical records. - Rafael Inquiry Pt receiving controlled substance: No Vital Signs: 07/21/21 22:31 07/21/21 23:19 Temperature 97.8 F 97.8 F Temperature Source Oral Oral Pulse Rate 83 Pulse Rate [Right] 97 H Respiratory Rate 24 18 Blood Pressure 172/82 H Blood Pressure [Right Arm] 169/86 H Blood Pressure Mean [Right Arm] 113 02 Sat by Pulse Oximetry 92 L Oxygen Delivery Method Room Air Room Air - Lab Data Lab results reviewed: Yes: I reviewed the patient's lab results. Lab Results 07/21/21 22:50: WBC 10.0, RBC 4.49, Hgb 14.8, Hct 44.3, MCV 98.7, MCH 33.0 H, MCHC 33.5, RDW 14.2, Plt Count 270, MPV 8.1, Neut % (Auto) 70.1, Lymph % (Auto) 24.0, [place] % (Auto) 3.2, Eos % (Auto) 1.7, Baso % (Auto) 0.9, Neut # (Auto) 7.0, Lymph # (Auto) 2.4, [place] # (Auto) 0.3, Eos # (Auto) 0.2, Baso # (Auto) 0.1, ESR 39 H 07/21/21 22:50: Sodium 144, Potassium 3.6, Chloride 106, Carbon Dioxide 26, Anion Gap 15.6 H, BUN 11, Creatinine 0.70, Estimated Creat Clear 46, Estimated GFR 81, Est GFR ( Amer) 98, Glucose 133 H, Calcium 9.1, Total Bilirubin 0.5, AST 30, ALT 27, Alkaline Phosphatase 100, Troponin I 0.01, C-Reactive Protein 10.6 H, Total Protein 7.7, Albumin 4.4, Globulin 3.3 H, Albumin/Globulin Ratio 1.3, Procalcitonin 0.069 07/21/21 22:50: Lactate 2.0 Result diagrams: 07/21/21 22:50 07/21/21 22:50 Orders (Tests/Meds): ED MEDICATIONS Discontinued Medications Generic Name Dose Route Start Last Admin Trade Name Freq PRN Reason Stop Dose Admin Sodium Chloride 1,000 mls @ 999 mls/hr 07/21/21 23:15 07/21/21 23:04 Sod Chlor 0.9% 1000ml Bag IV 07/22/21 00:15 999 mls/hr .Q1H1M GRISEL Administration Methylprednisolone Sodium Succinate 125 mg 07/21/21 23:01 07/21/21 23:04 Methylprednisolone Sod Succ 125mg Vial IV 07/21/21 23:02 125 mg ONCE ONE Administration ORDERS Category Date Time Status Blood Culture Stat Micro 07/21/21 22:50 Received - ECG Data Tracing #1 Arrhythmias present: other (paced) - SABRA Score for Non-Stemi Age of Patient: 70-79 years old Heart Rate: 90-109 bpm Systolic Blood Pressure: 160-199 mmHg Serum Creatinine: 0.40-0.79 mg/dl CHF [place] Class: I-No CHF Other Risk Factors: None Non-Stemi Risk Score: 104 Resp/SOB HPI - General Chief Complaint: Shortness of Breath/Dyspnea Stated Complaint: SOA vomitting Time Seen by Provider: 07/21/21 23:13 Mode of Arrival: Wheelchair Source of Information: Patient, Medical Record Limitations: No Limitations Description of Symptoms (Recalled from ER Triage Doc. by RN): pt c/o SOA, chills x 2 days - History of Present Illness MD Complaint: shortness of breath Onset (ago): day(s) Severity: moderate Consistency/Duration: intermittent Associated symptoms: denies other symptoms - Related Data Home oxygen amount: none Home Medications Medication Instructions Recorded Confirmed albuterol sulfate 2 mg tablet 2 mg PO QID 04/14/18 07/21/21 enalapril maleate 5 mg tablet 5 mg PO BID 04/14/18 07/21/21 fluticasone 100 mcg-salmeterol 50 1 puff INHALATION BID 04/14/18 07/21/21 mcg/dose blistr
[2021-07-21 23:17] LABS: Alanine Aminotransferase 27 U/L (12-78); Albumin Level 4.4 g/dl (3.5-5.0); Albumin/Globulin Ratio 1.3 (1.1-1.8); Alkaline Phosphatase 100 U/L (38-126); Anion Gap 15.6 mEq/L (5-15); Aspartate Amino Transferase 30 U/L (14-36); Bilirubin,Total 0.5 mg/dl (0.2-1.3); Blood Urea Nitrogen 11 mg/dl (7-17); Calcium 9.1 mg/dl (8.4-10.2); Carbon Dioxide 26 mmol/L (22.0-30.0); Chloride 106 mmol/L (98-107); Creatinine Clearance Estimated 46 mL/min (50-200); Estimated Glomerular Filt Rate 81 ml/min (>60); GFR (African American) 98 ML/MIN (>60); Globulin 3.3 g/dL (1.3-3.2); Glucose 133 mg/dl (74-100); Potassium 3.6 mmoL/L (3.5-5.1); Sodium 144 mmol/L (136-145); Total Protein,Serum 7.7 g/dl (6.3-8.2)
[2021-07-21 23:19] VITALS: BP 172/82; PULSE 83; RESP 18; TEMP 36.6; O2SAT 93
[2021-07-21 23:22] LABS: C-Reactive Protein 10.6 mg/L (0-4)
[2021-07-21 23:33] LABS: Troponin I 0.01 ng/ml (0.00-0.034)
[2021-07-21 23:37] LABS: Procalcitonin 0.069 ng/mL (0.0-2.0)
[2021-07-21 23:39] LABS: Erythrocyte Sedimentation Rate 39 mm/hr (0-30)
== END 2021-07-21 23:56 | disposition left against medical advice (07) ==
PROVIDERS: Emergency Provider Emergency Medicine; PCP Family Medicine
DX: R06.02 Shortness of breath (principal); Z95.0 Presence of cardiac pacemaker; J44.9 Chronic obstructive pulmonary disease, unspecified; I50.9 Heart failure, unspecified; K21.9 Gastro-esophageal reflux disease without esophagitis; E78.5 Hyperlipidemia, unspecified; I10 Essential (primary) hypertension; I25.10 Atherosclerotic heart disease of native coronary artery without angina pectoris
CPT/HCPCS: G0463; 80053; 83605; 84145; 84484; 85025; 85651; 86140; 87040; 93005; 99211

== ENCOUNTER → 2021-08-08 10:26 | Outpatient (CLI) | payer MEDICARE, SELFPAY ==
--- NOTE | 2021-08-08 10:31 | CT_ITS ---
Procedure: CT ANGIO ABDOMEN PELVIS CLINICAL HISTORY: chest pain/dyspnea Aortic aneurysm evaluation COMPARISON: No exams were available for comparison TECHNIQUE: IV Contrast: 100ml Isovue 370 Axial images obtained with sagittal and coronal reformats. All CT scans at the facility use one or more dose reduction, viz: automated exposure control, ma/kV adjustment per patient size (including targeted exams where dose is matched to indication, i.e. head), or iterative reconstruction technique. FINDINGS: Pacemaker artifact. There are multiple hypodense hepatic lesions in both lobes of the liver the largest in the left hepatic lobe at approximately 1 cm segment 4A. There is mild thickening of the antrum of the stomach which could be due to nondistention or due to gastritis. The spleen, adrenal glands, pancreas, and kidneys have an unremarkable appearance. No intestinal obstruction or free air. There is a small umbilical hernia containing fat. The descending colon does not lying in the pericolic gutter as normally seen with the pericolic gutter on the left in occupied by small bowel. No evidence of abdominal aortic aneurysm. There is atherosclerotic calcification of the abdominal aorta. No stenosis. Atherosclerotic changes are present involving the renal arteries but no significant stenosis. The celiac artery and SMA have an unremarkable appearance. The CHAD is patent. No iliac stenosis. Sclerotic focus is present involving the left acetabular roof at 11 mm possibly due to a bone island. IMPRESSION: No evidence of abdominal aortic aneurysm. Multiple hepatic hypodensities possibly due to cyst. Ultrasound may confirm cystic nature. Thickening of the antrum of the stomach nonspecific and may be due to nondistention or gastritis. Dictated by: Sahil Banks MD 08/11/2021 08:49 Sahil Banks MD in [place] 08/11/2021 08:49
--- NOTE | 2021-08-08 10:31 | CT_ITS ---
PROCEDURE: CT ANGIO CHEST PE PROTOCOL CLINCIAL INDICATION: chest pain/dyspnea COMPARISON: CT CTAC CTA-CHEST from 06/22/2017 TECHNIQUE: IV Contrast: 70ML Isovue 370 Axial images obtained with sagittal and coronal reformats. All CT scans at the facility use one or more dose reduction, viz: automated exposure control, ma/kV adjustment per patient size (including targeted exams where dose is matched to indication, i.e. head), or iterative reconstruction technique. FINDINGS: HEART AND MEDIASTINAL STRUCTURES: No evidence of pulmonary embolus. No evidence aortic aneurysm. No mediastinal or hilar mass or adenopathy. There is a small hiatal hernia. LUNGS AND PLEURAL SPACES: Calcified nodule right upper lobe unchanged. Faint mosaic ground-glass attenuation once again noted. No suspicious nodules effusions or consolidation. Bony structures: Corrugated appearance multiple thoracic and lumbar vertebra suggesting hemangioma involvement. This is most prominent at T7-T11 and L2. UPPER ABDOMEN: See abdomen report ADDITIONAL FINDINGS: No other significant abnormalities. IMPRESSION: Overall no significant change from 06/22/2017. No evidence of pulmonary embolus. Persistent mosaic attenuation of the lungs which is nonspecific but could be seen with small airway disease such as asthma or bronchitis. Dictated by: Sahil Banks MD 08/11/2021 08:39 Sahil Banks MD in [place] 08/11/2021 08:39
[2021-08-08 11:34] LABS: Blood Urea Nitrogen 14 mg/dl (7-17)
[2021-08-08 11:35] LABS: Estimated Glomerular Filt Rate 96 ml/min (>60); GFR (African American) 117 ML/MIN (>60)
== END ==
PROVIDERS: PCP Family Medicine; Visit Provider Internal Medicine Cardiovascular Disease
DX: E78.2 Mixed hyperlipidemia (principal); I10 Essential (primary) hypertension; I20.9 Angina pectoris, unspecified; R06.02 Shortness of breath; Z95.0 Presence of cardiac pacemaker
CPT/HCPCS: 36415; 71275; 74174; 82565; 84520; Q9967

== ENCOUNTER 2025-01-29 16:20 | Emergency (ER) | payer MEDICARE, SELFPAY ==
[2025-01-29 16:23] VITALS: BP 157/82; PULSE 97; RESP 18; TEMP 36.8; O2SAT 100; BMI 24.0
--- NOTE | 2025-01-29 16:28 | XR_ITS ---
PROCEDURE INFORMATION: Exam: XR Left Hip Exam date and time: 01/29/2025 5:12 PM Age: 84 years old Clinical indication: Injury or trauma; Fall; Blunt trauma (contusions or hematomas); Left; Hip; Additional info: Fall left hip pain TECHNIQUE: Imaging protocol: Radiologic exam of the left hip. Views: 2 or 3 views hip with pelvis when performed. COMPARISON: CR XR FEMUR LT 2V 01/29/2025 5:13 PM FINDINGS: Bones/joints: Moderate degenerative changes of hip. No acute fracture. Soft tissues: Unremarkable. IMPRESSION: No acute findings. Degenerative changes.
--- NOTE | 2025-01-29 16:28 | XR_ITS ---
PROCEDURE INFORMATION: Exam: XR Left Femur Exam date and time: 01/29/2025 5:13 PM Age: 84 years old Clinical indication: Injury or trauma; Fall; Blunt trauma; Thigh or upper leg; Left; Additional info: Fall left hip pain TECHNIQUE: Imaging protocol: Radiologic exam of the left femur. Views: 2 views. COMPARISON: CR XR HIP LT 2-3V W/PELVIS 01/29/2025 5:12 PM FINDINGS: Bones/joints: Knee arthroplasty/replacement. No acute fracture. Anatomic alignment. Osteopenia. Soft tissues: Unremarkable. IMPRESSION: No acute findings.
--- NOTE | 2025-01-29 18:24 | HMH.EDGENADL ---
Discharge Plan Disposition Patient Disposition: Home, Self-Care Condition: Good Prescriptions Prescriptions: No Action No Known Home Medications Referrals Follow up/Referrals: Barber Yousif MD [Primary Care Provider] - See instructions Activity Restrictions/Add. Instructions Additional Instructions/Restrictions: Patient has been accepted to [facility] emergency department ER to ER by Dr. Mcintyre Clinical Impressions Clinical Impression: Closed sacral fracture Qualifiers: Encounter type: initial encounter Zone of sacrum fracture: unspecified portion of sacrum Qualified Code(s): S32.10XA - Unspecified fracture of sacrum, initial encounter for closed fracture Injury of left iliac artery Qualifiers: Encounter type: initial encounter Qualified Code(s): S35.512A - Injury of left iliac artery, initial encounter Stand Alone Forms Stand Alone Forms: Transfer Record - ED Print Language Print Language: Comoran Discharge ED Provider: Sindy Montoya General Adult HPI <GERALDO Camarena - Last Filed: 01/29/25 21:18> General Chief complaint: Fall Stated complaint: FALL, HIP PAIN Time Seen by Provider: 01/29/25 18:24 Mode of Arrival: EMS Description of Symptoms (Recalled from ER Triage Doc. by RN): Pt presents from home via [facility] for evaluation of left hip pain after having a fall yesterday. No obvious signs of injuries. Pt states she was walking, and her left leg gave out on her. -LOC/BT, rates pain as a 6/10 History of Present Illness HPI narrative: Patient presents for evaluation of a fall. Patient reports that she was walking to her apartment and spilled her coffee. She then slipped on the liquid landing on her butt. Patient however was able to ambulate afterwards and since but it began hurting more today so she came to the ER for evaluation. She denies striking her head losing her consciousness any numbness tingling focal neurologic deficits loss of bowel or bladder function chest pain shortness of breath fever chills hemoptysis hematochezia melena nausea vomiting diarrhea.. Related Data Home Medications ?Medication ?Instructions ?Recorded ?Confirmed No Known Home Medications 11/02/22 11/02/22 Allergies Allergy/AdvReac Type Severity Reaction Status Date / Time coconut (From COCONUT Allergy Intermediate I-RASH Verified 11/02/22 15:02 (FOOD/DRUG)) codeine Allergy Intermediate I-RASH, Verified 11/02/22 15:02 NAUSEA/VOMITING Penicillins Allergy Intermediate I-RASH Verified 11/02/22 15:02 tuna oil Allergy Rash Verified 11/02/22 15:02 levofloxacin AdvReac Mild NA-NAUSEA/V Verified 11/02/22 15:02 OMITING PFSH <GERALDO Camarena - Last Filed: 01/29/25 21:18> PFS Disclaimer: The information contained in this section may have been updated after the patient was seen, as this information can be updated by other users. Medical History (Updated 01/29/25 @ 21:18 by GERALDO Camarena) Tinnitus Right ear pain Hearing Loss Impacted cerumen of right ear Depression Anxiety Asthma Hiatal hernia History of cardiac pacemaker in situ Hyperlipidemia Hypertensive disorder Coronary arteriosclerosis Surgical History History of cardiac cath Family History Mother Hypertension Hyperlipidemia Stroke Father Hypertension Hyperlipidemia Stroke Sister Hypertension Hyperlipidemia Kidney disease Brother Hyperlipidemia Social History Smoking Status: Unknown if ever smoked second hand exposure: Yes alcohol intake: never counseling provided: none substance use type: denies use current occupational status: retired Travel in the last 8 weeks: Inside the [place] household members: none housing: house Have you lived/traveled outside [place] in past 30 days?: No Contact w/someone who lives/traveled outside US past 30 days?: No Exposure to someone with infectious disease in past 14 days?: No Do you have a fever (greater than 100.4 F or 38 C)?: No Have you tested positive for COVID-19: No Exposed to someone with COVID-19 in past 14 days?: No Do you have a sore throat?: No Do you have a cough?: No Do you have any weakness?: No Do you have any diarrhea?: No Are you experiencing any unusual bleeding?: No Do you have any muscle aches/pain?: No Do you have any abdominal pain?: No Are you experiencing loss of taste or smell?: No Other Medical History Have you received the Flu Vaccine for this season: No Have you received the Pneumonia Vaccine: Yes <GERALDO Camarena - Last Filed: 01/29/25 21:18> ROS Obtained: Yes Systems reviewed as appropriate & no additional complaints except as documented Physical Exam <GERALDO Camarena - Last Filed: 01/29/25 21:18> General General appearance: alert and in no apparent distress Respiratory Respiratory exam: Present normal lung sounds bilaterally Cardiovascular Cardiovascular exam: Present regular rate Neurological Exam Neurological exam: Present alert and oriented X3 Medical Decision Making <GERALDO Camarena - Last Filed: 01/29/25 21:18> Medical Records Medical records reviewed: Yes I reviewed the patient's medical records. Screening: Per USPSTF and CDC recommendations, given the prevalence of disease in our region, it is our hospital?s policy to screen for HIV and viral Hepatitis for all patients aged 18 and over and those with ongoing risk factors. Rafael Inquiry Pt receiving controlled substance: No Vital Signs: 01/29/25 16:23 01/29/25 21:18 01/29/25 21:58 Temperature 98.2 F 97.9 F Temperature Source Oral Pulse Rate 104 H Pulse Rate [Left Dorsalis Pedis] 103 H Pulse Rate [Right] 97 H 103 H Respiratory Rate 18 20 Blood Pressure 176/98 H Blood Pressure [Right Arm] 157/82 H Blood Pressure Mean [Right Arm] 107 Blood Pressure Source [Right Arm] Automatic Cuff Blood Pressure Position [Right Arm] Sitting 02 Sat by Pulse Oximetry 100 Oxygen Delivery Method Room Air Nasal Cannula Oxygen Flow Rate (LPM) 2 Lab Data Lab results reviewed: Yes I reviewed the patient's lab results. Orders (Tests/Meds): ED MEDICATIONS Discontinued Medications Generic Name Dose Route Start Last Admin Trade Name Freq PRN Reason Stop Dose Admin Acetaminophen 1,000 mg 01/29/25 18:36 01/29/25 18:41 Acetaminophen 500mg Tab PO 01/29/25 18:37 1,000 mg ONCE ONE Administration Lidocaine 1 each 01/29/25 18:36 01/29/25 18:41 Lidocaine 5% Transdermal Patch TP 01/29/25 18:37 1 each ONCE ONE Administration Ondansetron HCl 4 mg 01/29/25 18:36 01/29/25 18:41 Ondansetron 4mg Odt SL 01/29/25 18:37 4 mg ONCE ONE Administration ORDERS Category Date Time Status CT bony pelvis Stat Cat Scan 01/29/25 18:[address] cervical spine wo con Stat Cat Scan 01/29/25 18:[address] head/brain wo con Stat Cat Scan 01/29/25 18:[address] lumbar spine wo con Stat Cat Scan 01/29/25 18:[address] thoracic spine wo con Stat Cat Scan 01/29/25 18:37 Completed Femur XR left 2 views [XR femur LT 2V] Stat Exams 01/29/25 16:28 Completed XR hip LT 2-3V w/pelvis Stat Exams 01/29/25 16:28 Completed Medical Decision Narrative: In summary patient is a 84-year-old female who presents to the emergency department for evaluation of fall and left hip pain. Patient is dynamically stable upon arrival, afebrile. Zickel exam is remarkable for tenderness to palpation actually in the posterior hip area/gluteus without palpable bony deformity ecchymosis contusions abrasions. Patient is neurovascularly intact distally. Patient actually can ambulate and bear weight in the emergency department.. Differential diagnosis includes contusion versus hip fracture versus pelvic fracture versus spinal fracture etc. Initial workup will be conducted with ED trauma scans of the spines in the head without contrast as well as the bony pelvis given the patient's advanced age. Initial interventions include Tylenol and Lidoderm patch. Initial workup reviewed by me and my informal interpretation of her plain film and CT imaging shows sacral fracture with no other bony no abnormality intracranial head injury or spine fracture prior to radiology read. However had interactive discussion with radiologist regarding patient's imaging and he sees very worrisome signs of an iliac artery rupture immediately adjacent to the sacral fracture. Upon repeat evaluation patient reported reduction in her pain and distal extremity is still warm pulses are palpable. Given the radiographic findings I have had an interactive discussion with Dr. Mcintyre with the [facility] transfer center regarding patient SUNSHINE findings and management and she has been accepted in transfer ER to ER for further evaluation and care. Patient will be leaving by air ambulance due to the significant injury and potential serious complications. <Sindy Montoya, DO - Last Filed: 01/29/25 23:13> Vital Signs: 01/29/25 16:23 01/29/25 21:18 01/29/25 21:58 Temperature 98.2 F 97.9 F Temperature Source Oral Pulse Rate 104 H Pulse Rate [Left Dorsalis Pedis] 103 H Pulse Rate [Right] 97 H 103 H Respiratory Rate 18 20 Blood Pressure 176/98 H Blood Pressure [Right Arm] 157/82 H Blood Pressure Mean [Right Arm] 107 Blood Pressure Source [Right Arm] Automatic Cuff Blood Pressure Position [Right Arm] Sitting 02 Sat by Pulse Oximetry 100 Oxygen Delivery Method Room Air Nasal Cannula Oxygen Flow Rate (LPM) 2 Orders (Tests/Meds): ED MEDICATIONS Discontinued Medications Generic Name Dose Route Start Last Admin Trade Name Urvashi PRN Reason Stop Dose Admin Acetaminophen 1,000 mg 01/29/25 18:36 01/29/25 18:41 Acetaminophen 500mg Tab PO 01/29/25 18:37 1,000 mg ONCE ONE Administration Lidocaine 1 each 01/29/25 18:36 01/29/25 18:41 Lidocaine 5% Transdermal Patch TP 01/29/25 18:37 1 each ONCE ONE Administration Ondansetron HCl 4 mg 01/29/25 18:36 01/29/25 18:41 Ondansetron 4mg Odt SL 01/29/25 18:37 4 mg ONCE ONE Administration ORDERS Category Date Time Status CT bony pelvis Stat Cat Scan 01/29/25 18:[address] cervical spine wo con Stat Cat Scan 01/29/25 18:[address] head/brain wo con Stat Cat Scan 01/29/25 18:[address] lumbar spine wo con Stat Cat Scan 01/29/25 18:[address] thoracic spine wo con Stat Cat Scan 01/29/25 18:37 Completed Femur XR left 2 views [XR femur LT 2V] Stat Exams 01/29/25 16:28 Completed XR hip LT 2-3V w/pelvis Stat Exams 01/29/25 16:28 Completed Medical Decision Narrative: In summary patient is a 84-year-old female who presents to the emergency department for evaluation of fall and left hip pain. Patient is dynamically stable upon arrival, afebrile. Zickel exam is remarkable for tenderness to palpation actually in the posterior hip area/gluteus without palpable bony deformity ecchymosis contusions abrasions. Patient is neurovascularly intact distally. Patient actually can ambulate and bear weight in the emergency department.. Differential diagnosis includes contusion versus hip fracture versus pelvic fracture versus spinal fracture etc. Initial workup will be conducted with ED trauma scans of the spines in the head without contrast as well as the bony pelvis given the patient's advanced age. Initial interventions include Tylenol and Lidoderm patch. Initial workup reviewed by me and my informal interpretation of her plain film and CT imaging shows sacral fracture with no other bony no abnormality intracranial head injury or spine fracture prior to radiology read. However had interactive discussion with radiologist regarding patient's imaging and he sees very worrisome signs of an iliac artery rupture immediately adjacent to the sacral fracture. Upon repeat evaluation patient reported reduction in her pain and distal extremity is still warm pulses are palpable. Given the radiographic findings I have had an interactive discussion with Dr. Mcintyre with the [facility] transfer [place] regarding patient SUNSHINE findings and management and she has been accepted in transfer ER to ER for further evaluation and care. Patient will be leaving by air ambulance due to the significant injury and potential serious complications. DO Jan: I was consulted by the [facility], and we discussed the complexity of the problems being addressed. I approved the treatment and management plan for this patient's care in the emergency department, thus performing a substantive portion of the medical decision making. Patient stable, resting comfortably on multiple repeat assessments requesting to go home. She had benign abdominal exam with only complaints of sacral pain after a mechanical fall. X-ray was negative on an independent interpretation by myself, so noncontrasted scans of the head, spines, and pelvis were obtained. CT scan concerning for sacral fracture with concern for possible iliac artery injury. I considered obtaining angiograms to further assess here, however I did not want to delay definitive transfer to trauma center. Given this, was called and after interactive discussion accepted the patient. She was transported there in stable condition. Sindy Montoya DO Critical Care <GERALDO Camarena - Last Filed: 01/29/25 21:18> Critical Care Time Critical Care Time: No <Sindy Montoya DO - Last Filed: 01/29/25 23:13> Critical Care Time Critical Care Time: Yes Attestation: On 01/29/25, the high probability of a clinically significant, sudden or life threatening deterioration of the following system(s) required my full and direct attention, intervention and personal management. The time I documented below is in addition to time spent performing reported procedures but includes the following listed in this critical care notation. Total Time Total Critical Care Time: 35
--- NOTE | 2025-01-29 18:31 | PC.NURSE ---
DON AT BEDSIDE ASSESSING PATIENT. INFORMED PATIENT THAT SRNA CALLED HER DAUGHTER SHE REQUESTED AND SHE STATED SHE DID NOT PLAN TO COME TO [facility] AT THIS TIME.
--- NOTE | 2025-01-29 18:37 | CT_ITS ---
PROCEDURE INFORMATION: Exam: CT Lumbar Spine Without Contrast Exam date and time: 01/29/2025 6:12 PM Age: 84 years old Clinical indication: Injury or trauma; Other: Trauma, critical injury suspected; Blunt trauma (contusions or hematomas) TECHNIQUE: Imaging protocol: Computed tomography of the lumbar spine without contrast. Radiation optimization: All CT scans at this facility use at least one of these dose optimization techniques: automated exposure control; mA and/or kV adjustment per patient size (includes targeted exams where dose is matched to clinical indication); or iterative reconstruction. COMPARISON: CT ANGIO ABDOMEN PELVIS 08/08/2021 12:06 PM FINDINGS: Bones/joints: Unremarkable lumbar spine finding for acute findings. Mildly displaced, comminuted, intra-articular left sacral fractures. No obvious sacroiliac joint diastasis. Osteopenia. Vasculature: Asymmetric dilatation of left common iliac artery at bifurcation level measuring 2.2 x 2.1 cm with poorly defined perivascular fat stranding (series 4, image 89). Soft tissues: Unremarkable. IMPRESSION: 1. No acute findings in lumbar spine. 2. Left iliac arterial enlargement with perivesicular fat stranding. With clinical history and sacral fractures, suspicious for at least injury/partial rupture.
--- NOTE | 2025-01-29 18:37 | CT_ITS ---
PROCEDURE INFORMATION: Exam: CT Head Without Contrast Exam date and time: 01/29/2025 6:08 PM Age: 84 years old Clinical indication: Injury or trauma; Fall; Blunt trauma (contusions or hematomas); Additional info: Trauma, critical injury suspected TECHNIQUE: Imaging protocol: Computed tomography of the head without contrast. Radiation optimization: All CT scans at this facility use at least one of these dose optimization techniques: automated exposure control; mA and/or kV adjustment per patient size (includes targeted exams where dose is matched to clinical indication); or iterative reconstruction. COMPARISON: No relevant prior studies available. FINDINGS: Brain: No hemorrhage. Underlying periventricular white matter changes and parenchymal cortical volume loss. No mass effect. Cerebral ventricles: No ventriculomegaly. Paranasal sinuses: Visualized sinuses are unremarkable. No fluid levels. Mastoid air cells: Visualized mastoid air cells are well aerated. Bones: Unremarkable. No acute fracture. Soft tissues: Unremarkable. IMPRESSION: No acute intracranial abnormality.
--- NOTE | 2025-01-29 18:37 | CT_ITS ---
PROCEDURE INFORMATION: Exam: CT Cervical Spine Without Contrast Exam date and time: 01/29/2025 6:12 PM Age: 84 years old Clinical indication: Injury or trauma; Fall; Blunt trauma; Additional info: Trauma, critical injury suspected TECHNIQUE: Imaging protocol: Computed tomography of the cervical spine without contrast. Radiation optimization: All CT scans at this facility use at least one of these dose optimization techniques: automated exposure control; mA and/or kV adjustment per patient size (includes targeted exams where dose is matched to clinical indication); or iterative reconstruction. COMPARISON: CT CERVICAL SPINE WO CON 01/29/2025 6:12 PM FINDINGS: Bones: No acute fracture. Normal alignment. Multilevel degenerative. Vertebral body heights. Probable C4 vertebral body bone island. Osteopenia. Lungs: Unremarkable Soft tissues: Unremarkable. IMPRESSION: No acute findings.
--- NOTE | 2025-01-29 18:37 | CT_ITS ---
PROCEDURE INFORMATION: Exam: CT Pelvis Without Contrast, Skeleton Exam date and time: 01/29/2025 6:18 PM Age: 84 years old Clinical indication: Injury or trauma; Other: Trauma, critical injury suspected; Blunt trauma (contusions or hematomas); Does not apply TECHNIQUE: Imaging protocol: Computed tomography of the pelvis without contrast. Exam focused on the skeleton. Radiation optimization: All CT scans at this facility use at least one of these dose optimization techniques: automated exposure control; mA and/or kV adjustment per patient size (includes targeted exams where dose is matched to clinical indication); or iterative reconstruction. COMPARISON: CT ANGIO ABDOMEN PELVIS 08/08/2021 12:06 PM FINDINGS: Vasculature: Asymmetric dilatation of left common iliac artery at bifurcation level measuring 2.2 x 2.1 cm with poorly defined perivascular fat stranding (series 4, image 54). Bones/joints: Mildly displaced, comminuted, intra-articular left sacral fractures. No obvious sacroiliac joint. Osteopenia. Soft tissues: Unremarkable. IMPRESSION: Left iliac arterial enlargement with perivesicular fat stranding. With clinical history and sacral fractures, suspicious for at least injury/partial rupture.
--- NOTE | 2025-01-29 18:37 | CT_ITS ---
PROCEDURE INFORMATION: Exam: CT Thoracic Spine Without Contrast Exam date and time: 01/29/2025 6:12 PM Age: 84 years old Clinical indication: Injury or trauma; Other: Trauma, critical injury suspected; Blunt trauma (contusions or hematomas) TECHNIQUE: Imaging protocol: Computed tomography of the thoracic spine without contrast. Radiation optimization: All CT scans at this facility use at least one of these dose optimization techniques: automated exposure control; mA and/or kV adjustment per patient size (includes targeted exams where dose is matched to clinical indication); or iterative reconstruction. COMPARISON: CT ANGIO CHEST PE PROTOCOL 08/08/2021 12:06 PM FINDINGS: Bones/joints: No acute fracture. Normal alignment. Soft tissues: Unremarkable. Lungs: Similar defined partially calcified lesion in right upper lobe (series 4, image 48). Patchy air trapping throughout both lungs. IMPRESSION: 1. Unremarkable CT Spine. 2. Similar right upper lobar calcified lesion. Pulmonary air trapping.
[2025-01-29] MEDS: ACETAMINOPHEN 500MG TAB 1000 MG PO (18:41)
[2025-01-29] MEDS: ONDANSETRON 4MG ODT 4 MG SL (18:41)
[2025-01-29] MEDS: LIDOCAINE 5% TRANSDERMAL PATCH 1 EACH TP (18:41)
--- NOTE | 2025-01-29 19:22 | PC.NURSE ---
Report received from February RN Pt awake alert and oriented Skin pink warm and dry REsp full and easy Speech clear and appropriate. Pt back from CT
--- NOTE | 2025-01-29 19:27 | PC.NURSE ---
daughter calls to request update on patient at this time.
--- NOTE | 2025-01-29 20:39 | PC.NURSE ---
GRAYSONAD called regarding CT reads
--- NOTE | 2025-01-29 20:43 | PC.NURSE ---
Nixon Christian gave pt a sandwich
--- NOTE | 2025-01-29 20:52 | PC.NURSE ---
[facility] on the phone with Sukhwinder Galaviz
--- NOTE | 2025-01-29 20:59 | PC.NURSE ---
Contacted [facility] in regards transfer of this patient.
--- NOTE | 2025-01-29 21:04 | PC.NURSE ---
Pt transferred to room 4 Report given to Penny SEARS Pt's daughter called to update her on patient's condition
--- NOTE | 2025-01-29 21:09 | PC.NURSE ---
GERALDO restrepo on phone with [facility]
--- NOTE | 2025-01-29 21:15 | PC.NURSE ---
Pedal pulses strong and equal
--- NOTE | 2025-01-29 21:15 | PC.NURSE ---
Called [facility] for a helicopter to transfer pt [facility]. Said they would call back once steamboat pilot checks weather
[2025-01-29 21:18] VITALS: PULSE 103
--- NOTE | 2025-01-29 21:20 | PC.NURSE ---
[facility] accepted pt said ETA 22 minutes
--- NOTE | 2025-01-29 21:26 | PC.NURSE ---
Nixon Vasquez gave a phone to Pt so she could talk to her daughter
--- NOTE | 2025-01-29 21:29 | PC.NURSE ---
Admin. 2 LMP 02 [address] GONZALO Wong
--- NOTE | 2025-01-29 21:29 | PC.NURSE ---
Daughter updated pm plan to fly patient to [place]
[2025-01-29 21:58] VITALS: BP 176/98; PULSE 104; RESP 20; TEMP 36.6; O2SAT 96
== END 2025-01-29 22:01 | disposition home or self-care (01) ==
PROVIDERS: Emergency Provider Emergency Medicine; PCP Family Medicine
DX: S32.10XA Unspecified fracture of sacrum, initial encounter for closed fracture (principal); S35.512A Injury of left iliac artery, initial encounter; M25.552 Pain in left hip; W01.0XXA Fall on same level from slipping, tripping and stumbling without subsequent striking against object, initial encounter; Y93.89 Activity, other specified; Y92.89 Other specified places as the place of occurrence of the external cause
CPT/HCPCS: 70450; 72125; 72128; 72131; 72192; 73502; 73552; 99291; Q0162

== ENCOUNTER 2025-10-22 20:59 | Emergency (ER) | payer MEDICARE, OTHER, SELFPAY ==
--- NOTE | 2025-10-22 21:01 | ECG_ITS ---
APPROVED REPORT Exam: Resting ECG HR:100 bpm ECG Measurements Heart Rate 100 AXES MA 187 P 57 QRSd 190 QRS -51 QT 411 T 118 QTc 468 Conclusion ELECTRONIC VENTRICULAR PACEMAKER ABNORMAL RHYTHM ECG Electronically signed by : MELODIE OH, 10/23/2025 17:14:36
--- NOTE | 2025-10-22 21:03 | XR_ITS ---
PROCEDURE INFORMATION: Exam: XR Chest Exam date and time: 10/22/2025 9:07 PM Age: 85 years old Clinical indication: Pain; Chest pressure; Additional info: Right chest pain, pneumonia TECHNIQUE: Imaging protocol: Radiologic exam of the chest. Views: 1 view. COMPARISON: CR XR CHEST PORTABLE 05/01/2021 8:21 PM FINDINGS: Tubes, catheters and devices: Dual lead left-sided cardiac pacemaker with leads intact. Lungs: Calcified granulomas in the right upper lobe. No pneumonia. Emphysema Pleural spaces: Unremarkable. No pleural effusion. No pneumothorax. Heart/Mediastinum: Cardiomegaly Bones/joints: Unremarkable. IMPRESSION: No acute findings.
--- NOTE | 2025-10-22 21:05 | HMH.EDCP ---
Discharge Plan Disposition Patient Disposition: Home, Self-Care Prescriptions Prescriptions: New doxycycline hyclate 100 mg capsule 100 mg PO BID 5 Days Qty: 10 0RF No Action cetirizine [Allergy Relief (cetirizine)] 10 mg tablet 10 mg PO DAILY Qty: 30 3RF fluticasone propionate [Allergy Relief (fluticasone)] 50 mcg/actuation spray,suspension 1 spray intranasal BID Qty: 1 4RF Rx Instructions: administer into each nostril ipratropium-albuterol 0.5 mg-3 mg(2.5 mg base)/3 mL solution for nebulization 3 ml inhalation Q6H PRN Breztri Aerosphere 160-9-4.8 mcg/actuation HFA aerosol inhaler 2 inh inhalation BID Referrals Follow up/Referrals: Barber Yousif MD [Primary Care Provider, Medical] - See instructions Activity Restrictions/Add. Instructions Additional Instructions/Restrictions: Follow-up with your hospice team. There are antibiotics prescribed. Clinical Impressions Clinical Impression: Right-sided chest wall pain Print Language Print Language: Namibian Discharge ED Provider: Tony Gibbons HPI General Chief Complaint: Shortness of Breath/Dyspnea Stated Complaint: SOA, chest and stomache pain Time Seen by Provider: 10/22/25 21:00 History of Present Illness HPI narrative: Rubi Basurto is a 85F with a history of pacemaker, angina, PR, who is currently on hospice for a infection of her right lung since January who presents to the emergency department for complaints of shortness of breath and right-sided chest pain. Patient states that she was diagnosed with pneumonia on her right side back in January and was airlifted to the [facility]. She states that since then, she has been on hospice care and is been taking half of OxyContin daily for her right sided chest pain/pneumonia. She states that she was told by her hospice care team to come to the hospital today to get checked out. She states that she has had worsening pain today. Patient reiterates that she is a DNR/DNI. She states that she is not currently being treated for an infection. Related Data Home Medications ?Medication ?Instructions ?Recorded ?Confirmed budesonide 160 mcg-glycopyr 9 2 inh inhalation BID 08/08/25 08/08/25 mcg-formot 4.8 mcg/actuation HFA inhaler (Breztri Aerosphere) ipratropium 0.5 mg-albuterol 3 mg 3 ml inhalation Q6H PRN 08/08/25 08/08/25 (2.5 mg base)/3 mL nebulization soln Previous Rx's ?Medication ?Instructions ?Recorded cetirizine 10 mg tablet (Allergy 10 mg PO DAILY #30 tabs 05/15/25 Relief (cetirizine)) fluticasone propionate 50 1 spray intranasal BID #1 g 05/15/25 mcg/actuation nasal spray,suspension (Allergy Relief (fluticasone)) doxycycline hyclate 100 mg capsule 100 mg PO BID 5 days #10 caps 10/22/25 Allergies Allergy/AdvReac Type Severity Reaction Status Date / Time coconut (From COCONUT Allergy Intermediate I-RASH Verified 08/08/25 14:22 (FOOD/DRUG)) codeine Allergy Intermediate I-RASH, Verified 08/08/25 14:22 NAUSEA/VOMITING Penicillins Allergy Intermediate I-RASH Verified 08/08/25 14:22 tuna oil Allergy Rash Verified 08/08/25 14:22 levofloxacin AdvReac Mild NA-NAUSEA/V Verified 08/08/25 14:22 OMITING PFSH PFSH Disclaimer: The information contained in this section may have been updated after the patient was seen, as this information can be updated by other users. Medical History (Updated 10/22/25 @ 22:21 by Tony Gibbons MD) Hx of myocardial infarction Right foot pain Left foot pain Tinnitus Right ear pain Hearing Loss Impacted cerumen of right ear Depression Anxiety Asthma Hiatal hernia History of cardiac pacemaker in situ Hyperlipidemia Hypertensive disorder Coronary arteriosclerosis Surgical History (Updated 08/09/25 @ 06:58 by Yolanda Mayer APRN) History of cardiac cath Family History Mother Hypertension Hyperlipidemia Stroke Father Hypertension Hyperlipidemia Stroke Sister Hypertension Hyperlipidemia Kidney disease Brother Hyperlipidemia Social History Smoking Status: Never smoker second hand exposure: Yes alcohol intake: never counseling provided: none substance use type: denies use current occupational status: retired Travel in the last 8 weeks?: Inside the [place] household members: none housing: house Have you lived/traveled outside US in past 30 days?: No Contact w/someone who lives/traveled outside US past 30 days?: No Exposure to someone with infectious disease in past 14 days?: No Do you have a fever (greater than 100.4 F or 38 C)?: No Have you tested positive for COVID-19?: No Exposed to someone with COVID-19 in past 14 days?: No Do you have a sore throat?: No Do you have a cough?: No Do you have any weakness?: No Do you have any diarrhea?: No Are you experiencing any unusual bleeding?: No Do you have any muscle aches/pain?: No Do you have any abdominal pain?: No Are you experiencing loss of taste or smell?: No Other Medical History Have you received the Flu Vaccine for this season: No Have you received the Pneumonia Vaccine: Yes ROS Obtained: Yes Systems reviewed as appropriate & no additional complaints except as documented Physical Exam General General appearance: alert and in no apparent distress Head Head exam: atraumatic Eye Eye exam: Present normal appearance ENT ENT exam: Present normal external ear exam Neck Neck exam: Present full ROM Chest Chest inspection: Present symmetric chest wall rise Respiratory Respiratory exam: Present normal lung sounds bilaterally, respiratory distress (mild increased work with breathing) and wheezes (mild end expiratory wheezing) Cardiovascular Cardiovascular exam: Present regular rate and normal rhythm Abdominal Exam Abdominal exam: Present soft; Absent tenderness or guarding Extremities Exam Extremities exam: Present normal inspection Back Exam Back exam: Present normal inspection Neurological Exam Neurological exam: Present alert and oriented X3 Psychiatric Psychiatric exam: Present normal affect Skin Skin exam: Present warm and dry HEART Score HEART Score HEART Score assessment performed?: Yes History (anamnesis): Slightly suspicious ECG: Normal Age: >65 years Risk factors: Atherosclerosis history Troponin: </= normal limit HEART Score: 4 Critical Care Critical Care Time Critical Care Time: No Medical Decision Making Rafael Inquiry Pt receiving controlled substance: No Vital Signs Vital Signs: 10/22/25 21:06 10/22/25 21:52 10/22/25 22:11 Temperature 97.8 F Temperature Source Oral Pulse Rate 83 Pulse Rate [Right] 85 Respiratory Rate 18 Blood Pressure Blood Pressure [Right Arm] 176/105 H Blood Pressure Mean [Right Arm] 128 Blood Pressure Source Blood Pressure Position 02 Sat by Pulse Oximetry 97 95 Oxygen Delivery Method Room Air Room Air 10/22/25 22:24 Temperature 97.8 F Temperature Source Oral Pulse Rate 89 Pulse Rate [Right] Respiratory Rate 18 Blood Pressure 184/95 H Blood Pressure [Right Arm] Blood Pressure Mean [Right Arm] Blood Pressure Source Automatic Cuff Blood Pressure Position Sitting 02 Sat by Pulse Oximetry Oxygen Delivery Method Room Air Lab Data Labs: Lab Results 10/22/25 21:20: WBC 8.6, RBC 4.38, Hgb 14.4, Hct 41.3, MCV 94.3, MCH 32.9 H, MCHC 34.9, RDW 13.2, Plt Count 216, MPV 10.3, Neut % (Auto) 73.6, Lymph % (Auto) 19.0, Winston % (Auto) 5.0, Eos % (Auto) 1.6, Baso % (Auto) 0.6, Neut # (Auto) 6.3, Lymph # (Auto) 1.6, Winston # (Auto) 0.4, Eos # (Auto) 0.1, Baso # (Auto) 0.1, Sodium 140, Potassium 4.1, Chloride 107, Carbon Dioxide 26, Anion Gap 11.1, BUN 12, Creatinine 0.80, Estimated Creat Clear 40, Estimated GFR 69, Est GFR ( Amer) 83, Glucose 134 H, Calcium 9.4, Total Bilirubin 0.7, AST 30, ALT 20, Alkaline Phosphatase 96, Troponin I < 0.01, NT-Pro-B Natriuret Pep 1340 H, Total Protein 7.7, Albumin 4.6, Globulin 3.1, Albumin/Globulin Ratio 1.5, HCV Ab VIC w/Rflx PCR Qn Negative, HIV Ag/Ab Combo Qual Negative 10/22/25 21:23: VBG pH 7.38, VBG pCO2 45.9, VBG pO2 32.0, VBG HCO3 26.7, VBG Total CO2 28.1 H, VBG O2 Saturation 62.4, VBG Base Excess 1.6, VBG Lactic Acid 2.4 H 10/22/25 21:20 10/22/25 21:20 Response Orders (Tests/Meds): ED MEDICATIONS Discontinued Medications Generic Name Dose Route Start Last Admin Trade Name Freq PRN Reason Stop Dose Admin Albuterol/Ipratropium 3 ml 10/22/25 21:05 10/22/25 21:56 Ipratropium/Albuterol 3 Ml Neb IH 10/22/25 21:06 3 ml ONCE ONE Administration Morphine Sulfate 4 mg 10/22/25 21:03 10/22/25 21:45 Morphine 4mg/Ml Syringe IV 10/22/25 21:04 4 mg ONCE ONE Administration ORDERS Category Date Time Status CXR --portable [XR chest portable] Stat Exams 10/22/25 21:03 Completed BNP [NT Pro Brain Natriuretic Pep.] Stat Lab 10/22/25 21:20 Completed CBC w/Auto Diff [Complete Blood Count Auto Diff] Stat Lab 10/22/25 21:20 Completed CMP [Comprehensive Metabolic Panel] Stat Lab 10/22/25 21:20 Completed HIV Combo Stat Lab 10/22/25 21:20 Completed Hepatitis C Ab Qual. W/ RFX Stat Lab 10/22/25 21:20 Completed Troponin I Stat Lab 10/22/25 21:20 Completed VBG [Venous Blood Gas] Stat RT 10/22/25 21:23 Completed ECG Data Tracing #1: Attestation: I reviewed this ECG and interpreted as documented below: ECG Narrative: Ventriculalry paced rhythm, Unchanged from previous EKG. No STEMI MDM Narrative Medical Decision Narrative: Rubi Basurto is a 85F with a history of pacemaker, angina, PR, who is currently on hospice for a infection of her right lung since January who presents to the emergency department for complaints of shortness of breath and right-sided chest pain. Patient states that she was diagnosed with pneumonia on her right side back in January and was airlifted to the [facility]. She states that since then, she has been on hospice care and is been taking half of OxyContin daily. She reports a history of COPD and that's why she is under Hospice care. She states that she was told by her hospice care team to come to the hospital today to get checked out. She states that she has had worsening pain today. Patient reiterates that she is a DNR/DNI. She states that she is not currently being treated for an infection. On arrival, patient is hypertensive but hemodynamically stable. maintaing appropriate oxygen saturation on room air. Afebrile. Physical exam revealed a chronically ill appearing female with mild increase work with breathing. Mild end expiratory wheezing. Abdomen is soft, nontender, and nondistended. Differential diagnosis includes, but is not limited to: pneumonia, COPD exacerbation, exacerbation of chronic pain, ACS, pericarditis, myocarditis, pleurisy, among others. The most morbid conditions were considered and workup was based on these. Patient was administered a duoneb treatment and 4mg of morphine for pain. CXR interpreted by me personally. No focal consolidation, pleural effusion, or pneumothorax. Calcified granulomas in the RUL. See radiology report for details. EKG shows a ventricularly paced rhythm without evidence of STEMI and unchanged from previous EKG. Labwork is unremarkbale and non-actionable with no leukocytosis, no acidosis or hypercapnea, lactate very mildly elevated at 2.4. electrolytes WNL, no MORELIA, troponin <0.01, BNP elevated at 1340. On reassessment, patient has remained stable and work of breathing and pain have improved. I do feel this is likely an flare of her chronic lung disease and will prescribe a course of doxycycline but encouraged her to follow up with her Hospice team regarding additional pain control. return precautions were given, all questions were answered, she demonstrated understanding and was in agreement with this plan, she was then discharged from the emergency department in stable condition.
[2025-10-22 21:06] VITALS: BP 176/105; PULSE 85; RESP 18; TEMP 36.6; O2SAT 97; BMI 25.4
--- OUTSIDE RECORDS SUMMARY | 2025-10-22 21:16 | XMS_ITS | Clinical Summary ---
Author Organization [facility] ([place], [place], [place], [place], [place]) Address [address] [place] [address] Care Team Providers Care Die Cast Patternmaker Name Role Phone [facility], Provider Not In The System MD Primary Care Provider Unavailable Allergies Active Allergy Reactions Criticality Noted Date Comments Coconut 02/15/2024 Other reaction(s): Rash Codeine Low 01/20/2012 Other reaction(s): Other - please document in the comment field Levofloxacin Low 02/01/2023 Other reaction(s): Other - please document in the comment field Penicillins Low 01/20/2012 Other reaction(s): Unknown - Patient states they do not know rxn details Tuna Oil 02/15/2024 12:52 EST - tuna fish Medications miscellaneous medical supply Misc by Miscellaneous route OXYGEN 2L PER NC. Active ondansetron (ZOFRAN) 4 MG tablet Take 1 tablet (4 mg total) by mouth 4 (four) times daily as needed for Nausea for up to 60 doses. 30 tablet Active Active Problems Problem Noted Date Diagnosed Date Mechanical instability of knee prosthesis 2023 Stroke 02/15/2024 Pacemaker 02/15/2024 Emphysema lung 02/15/2024 Coronary artery disease 02/15/2024 Social History Tobacco Use Types Packs/Day Years Used Date Smoking Tobacco: Never Smokeless Tobacco: Never Tobacco Cessation:Counseling Given: Not Answered Alcohol Use Standard Drinks/Week Comments Never 0 (1 standard drink = 0.6 oz pur e alcohol) Overall Financial Resource Strain (CARDIA) Answe r Date Recorded How hard is it for you to pa y for the very basics like food, housing, medical care, and heating? Very hard 02/15/2024 Hunger Vital Sign Answer Date Recorded Within the past 12 months, y ou worried that your food would run out before you got the money to buy more. Never true 02/15/20 24 Within the past 12 months, t he food you bought just didn't last and you didn't have money to get more. Never true 02/15/2024 Food Insecurity Answer Date Recorded Food run out past 12 months Not on file 01/21 Food did not last past 12 months Not on file 02/11/2024 Employment Answer Date Recorded Help finding and keeping a job Not on file 0 02/11/2024 Family and Community Support Answer Gordon e Recorded Help with Day to Day Activities Not on file 02/11/2024 Feeling Lonely or Isolated Not on file 02/10 Educational Attainment Answer Date Mc rded Speak language other than Japanese at home Not on file 02/11/2024 Want help with school or training Not on file 02/11/2024 Substance Use Answer Date Recorded Used prescription meds for non-medical reasons N ot on file 02/11/2024 Used illegal drugs past 12 months Not on file 02/11/2024 Comments No Sex and Gender Information Value Date Recorded Sex Assigned at Not on file Legal Sex Female 7:28 PM CDT Gender Identity Not on file Sexual Orientation Not on file Last Filed Vital Signs Vital Sign Reading Time Taken Comments Blood Pressure 133/50 03/02/2024 11:30 AM EDT Pulse 60 03/02/2024 11:30 AM EDT Temperature 36.5 C (97.7 F) 03/02/2024 11:30 AM EDT Respiratory Rate 16 03/02/2024 11:30 AM EDT Oxygen Saturation 95% 03/02/2024 11:30 AM EDT Inhaled Oxygen Concentration - - Weight 60.8 kg (134 lb) 03/01/2024 6:34 PM EDT Height 160 cm (5' 2.99 ) 03/01/2024 6:34 PM EDT Body Mass Index 23.74 03/01/2024 6:34 PM EDT Plan of Treatment Health Maintenance Due Date Last Done Comments DXA SCAN 1942 Depression Screening (12+) 1954 DTAP/TDAP/TD VACCINES (1 - Tdap) 1961 Pneumococcal 50+ years (1 of 2 - PCV) 1961 Shingles Vaccine (Zoster) (1 of 2) 1992 Medicare Initial AWV G0438 01/22/2000 Respiratory Syncytial Virus (RSV) Adult or (1 - 1-dose 75+ series) 2017 Falls Risk Screening 11/22/2024 Tobacco Cessation Counseling and Screening (12+) 03/01/2025 03/01/2024 COVID-19 VACCINE (2024-2 6 season) 2025 06/19/2021, 06/18/2021, 05/04/2021, Additional history exists Influenza Vaccine (#1) 2025 Medical Devices Implanted Type Area Gasket Supervisor Device Identifier Shelf Expiration Date Model / Serial / Lot Baseplt Revision Tib Sz 2 5612-B-200 - [id number] Implanted:Qt y: 1 on 03/01/2024 by Jerrod Becerra MD at [facility] IMPLANTS Left: Knee RAFIQ:[employer] [id number] 11/05/2028 5612-B-20 0 / / [id number] Hinge Bushings And Axle 5612-3-000 - [id number] Implanted:Qt y: 1 on 03/01/2024 by Jerrod Becerra MD at [facility] IMPLANTS Left: Knee RAFIQ:[employer] [id number] 10/17/2028 5612-3-00 0 / / [id number] Cement Bone-Smplx Hv W-Gentam 6195-1-010 - [id number] Implanted:Qt y: 4 on 03/01/2024 by Jerrod Becerra MD at [facility] IMPLANTS Left: Knee RAFIQ:[employer] [id number] 02/19/2025 6195-1-01 0 / / [id number] E Stem Cemented 12x50 Mm 5560-S-112 - [id number] Implanted:Qt y: 1 on 03/01/2024 by Jerrod Becerra MD at [facility] TOTAL JOINT CONSTRUCT Left: Knee RAFIQ:[employer] [id number] 06/06/2028 5560-S-11 2 / / [id number] Comp Trthln Tib Hinge Sz 1-2 5612-0-001 - [id number] Implanted:Qt y: 1 on 03/01/2024 by Jerrod Becerra MD at [facility] TOTAL JOINT CONSTRUCT Left: Knee RAFIQ:[employer] [id number] 10/10/2028 5612-0-00 1 / / [id number] Ext Stem 25mm 5571-S-025 - [id number] Implanted:Qt y: 1 on 03/01/2024 by Jerrod Becerra MD at [facility] TOTAL JOINT CONSTRUCT Left: Knee RAFIQ:[employer] [id number] 09/19/2028 5571-S-02 5 / / [id number] Triathlon Hinge Fem Sz2 10mm 5612-D-210 - [id number] Implanted:Qt y: 1 on 03/01/2024 by Jerrod Becerra MD at [facility] TOTAL JOINT CONSTRUCT Left: Knee RAFIQ:[employer] [id number] 06/01/2028 5612-D-21 0 / / [id number] Comp Triathlon Hinge Fem Sz2 L 5612-F-201 - [id number] Implanted:Qt y: 1 on 03/01/2024 by Jerrod Becerra MD at [facility] TOTAL JOINT CONSTRUCT Left: Knee RAFIQ:[employer] [id number] 07/20/2028 5612-F-20 1 / / [id number] Fem Cone Aug Sz1-2 Lt 5549-A-621 - [id number] Implanted:Qt y: 1 on 03/01/2024 by Jerrod Becerra MD at [facility] TOTAL JOINT CONSTRUCT Left: Knee RAFIQ:[employer] [id number] 12/19/2028 5549-A-62 1 / / [id number] Stem Cemented 12x50 Mm 5560-S-112 - [id number] Implanted:Qt y: 1 on 03/01/2024 by Jerrod Becerra MD at [facility] TOTAL JOINT CONSTRUCT Left: Knee RAFIQ:[employer] [id number] 04/21/2028 5560-S-11 2 / / [id number] Tib Sym Con Jun 5549-A-120 - [id number] Implanted:Qt y: 1 on 03/01/2024 by Jerrod Becerra MD at [facility] TOTAL JOINT CONSTRUCT Left: Knee RAFIQ:[employer] [id number] 05/04/2028 5549-A-12 0 / / [id number] Insrt Triathlon Hinge Sz2 22mm 5612-P-222 - [id number] Implanted:Qt y: 1 on 03/01/2024 by Jerrod Becerra MD at [facility] TOTAL JOINT CONSTRUCT Left: Knee RAFIQ:[employer] [id number] 06/13/2028 5612-P-22 2 / / [id number] Triathlon Hinge Bumper 5612-4-003 - [id number] Implanted:Qt y: 1 on 03/01/2024 by Jerrod Becerra MD at [facility] TOTAL JOINT CONSTRUCT Left: Knee RAFIQ:[employer] [id number] 06/02/2028 5612-4-00 3 / / [id number] Insurance MEDICARE PART A B Advance Directives For more information, please contact: [phone] * Full Code (Latest Code Status on File) Date Activated Date Inactivated Comments 03/01/2024 5:41 PM 03/02/2024 2:28 PM * Full Code Date Activated Date Inactivated Comments 03/01/2024 9:52 AM 03/01/2024 5:41 PM Care Teams Die Cast Patternmaker Relationship Specialty Start Date End Date [facility], Provider Not In The System, [place] [address] PCP - General 03/01/24
--- OUTSIDE RECORDS SUMMARY | 2025-10-22 21:16 | XMS_ITS | Clinical Summary ---
Author Organization [facility] Address [address] [place] [id number] Phone Care Team Providers Care Librarian School Name Role Phone Unavailable Primary Care Provider Unavailabl e Social History Tobacco Use Types Packs/Day Years Used Date Smoking Tobacco: Never Assessed Comments Unknown Sex and Gender Information Value Date Recorded Sex Assigned at Not on file Legal Sex Female 3:46 PM EDT Gender Identity Not on file Sexual Orientation Not on file Plan of Treatment Health Maintenance Due Date Last Done Comments Wellness Exam Medicare 1945 DTaP/TDaP/Td (1 - Tdap) 1961 Pneumococcal Vaccine 50+ (1 of 1 - PCV) 1992 Zoster (1 of 2) 1992 Bone Density Screening 2007 RSV or 60+ (1 - 1-d ose 75+ series) 2017 COVID-19 Vaccine (2024-2 6 season) 2025 Influenza Vaccine (#1) 2025 Hepatitis B Vaccine Aged Out No longe r eligible based on patient's age to complete this topic Meningococcal B Vaccine Aged Out No l onger eligible based on patient's age to complete this topic Insurance [place] [id number] MEDICARE [place] PART A AND B [place] [id number]
--- OUTSIDE RECORDS SUMMARY | 2025-10-22 21:16 | XMS_ITS | Clinical Summary ---
Author Organization [facility] Address [address] [place] [address] Care Team Providers Care Shirt Folder Name Role Phone Barber Yousif MD Primary Care Provider [phone]- [phone] Allergies Active Allergy Reactions Criticality Noted Date Comments Coconut Oil Unknown - Patient st ates they do not know rxn details Low 05/21/2025 Codeine Other - please docum ent in the comment field Low 01/20/2012 Fish Oil Other - please docum ent in the comment field Low 02/15/2024 12:52 EST - tuna fish Levofloxacin Other - please docum ent in the comment field Low 02/01/2023 Penicillins Unknown - Patient st ates they do not know rxn details Low 01/20/2012 Medications guaiFENesin (Mucinex) 600 MG 12 hr tablet Take 1 tablet by mouth 2 times a day. Do not crush, chew, or split. 30 tablet 5 Active methocarbamol (Robaxin) 500 MG tablet Take 1 tablet by mouth 3 times a day for 14 days. 42 tablet 5 Active sodium chloride 3 % nebulizer solution Take 3 mL by nebulization 2 times a day. 750 mL 12 5 Active Budeson-Glycopy rrol-Formoterol (Breztri Aerosphere) 160-9-4.8 MCG/ACT aerosolIndicati ons:Pulmonary emphysema, unspecified emphysema type Inhale 2 puffs 2 times a day. Rinse mouth with water after use to reduce aftertaste and incidence of candidiasis. Do not swallow. 10.7 g 11 5 Active ipratropium-alb uterol (Duo-Neb) 0.5-2.5 mg/3 mL nebulizer solutionIndicat ions:Asthma, unspecified asthma severity, unspecified whether complicated, unspecified whether persistent Take 3 mL by nebulization every 4 to 6 hours as needed for wheezing. 180 mL 3 5 Active Active Problems Problem Noted Date Diagnosed Date Thrombocytopenia 02/07/2025 Overview (02/07/2025): Monitor for bleeding Leukopenia 02/05/2025 Overview (02/05/2025): Wbc 2.69 Constipation due to opioid therapy 02/03/2025 Overview (02/06/2025): 02/02: saline enema given 02/03: milk mol added Patient reported BM 02/03, continue bowel reg Atherosclerosis of abdominal aorta 01/31/2025 Overview (02/06/2025): -Incidental finding -Noted on imaging; moderate amount of calcified and noncalcified atherosclerotic plaque involving the abdominal aorta and common iliac arteries -Follow up with pcp for surveillance Abnormal findings on diagnostic imaging of liver 01/31/2025 Overview (02/06/2025): -Incidental finding -Noted on imaging; innumerable hypoattenuating lesions throughout both lobes of the liver, most of which are too small to characterize; the largest measuring up to 11 mm in the left hepatic lobe -Follow up with pcp for surveillance Adrenal hypertrophy 01/31/2025 Overview (02/06/2025): -Incidental finding -Thickening of the left adrenal gland -Follow up with pcp for surveillance Free fluid in pelvis 01/31/2025 Overview (02/06/2025): Incidental finding Abdominal exam stable Umbilical hernia without obstruction and without gangrene 01/31/2025 Overview (01/31/2025): Incidental finding Small fat-containing umbilical hernia Osteopenia 01/31/2025 Overview (01/31/2025): Incidental finding Generalized osteopenia seen on imaging Bone island 01/31/2025 Overview (02/06/2025): -Incidental finding -Noted on imaging; bone island is seen in the left superior acetabulum Closed fracture of sacrum, u nspecified fracture morphology, initial encounter 01/30/2025 Overview (02/07/2025): Minimally displaced left sacral alar fracture PMFs stable. Non op management BLE protected WB ORT: Follow up 03/21 @ 1 PM with Dylan Rivera COPD with emphysema 01/30/2025 Overview (02/06/2025): Resume home meds as appropriate Supplemental oxygen HTN (hypertension) 01/30/2025 Overview (01/30/2025): Resume home meds as appropriate HLD (hyperlipidemia) 01/30/2025 Overview (01/30/2025): Resume home meds as appropriate History of CVA (cerebrovascular accident) 2024 Overview (01/30/2025): Resume home meds as appropriate Coronary artery disease 02/15/2024 Overview (01/30/2025): Multiple prior Mis Resume home meds as appropriate Hearing problem, bilateral 07/13/2017 Overview (02/06/2025): Complicates communication, patient has no hearing aids Pacemaker 07/07/2017 Overview (01/30/2025): Medtronic pacemaker (MRI compatible) placed for 2:1 AV block in 2017 Second degree atrioventricular block 07/07/2017 Overview (01/30/2025): Medtronic pacemaker (MRI compatible) placed for 2:1 AV block in 2017 GERD (gastroesophageal reflux disease) 5 Overview (01/30/2025): Resume home meds as appropriate Resolved Problems Problem Noted Date Diagnosed Date Resolved Date Acute respiratory failure with hypoxia 02/05/2025 08/12/2025 Overview (02/08/2025): 02/05: 5L O2 requirement. CT chest obtained for dyspnea shows multifocal airspace disease consistent with multifocal infection or aspiration. IV Zosyn started 02/08: improving RUL airspace disease Fall 01/30/2025 08/12/2025 Overview (01/30/2025): Admit SGT Tertiary 01/31 Chronic obstructive pulmonary disease 09/14/2016 01/30/2025 Overview (01/30/2025): Resume home meds as appropriate Encounters Date Type Department Care Team Description 10/04/2025 Telephone [facility] [address] [place] [address] Guanaco Chavez, violin mechanic 08/28/2025 Telephone [facility] [address] [place] [address] Jagruti Daley, violin mechanic 08/06/2025 Refill [facility] [address] [place] [address] Willis Colbert, WALL CLEANER Asthma, unspecified asthma severity, unspecified whether complicated, unspecified whether persistent from Last 3 Months Immunizations Immunization Administration Dates Next Due Pneumococcal 20-suri Conj Vaccine 05/21/2025 Family History Medical History Relation Name Comments Coronary artery disease Other 1 Diabetes Other 2 Other cancer Other 3 Relation Name Status Comments Other 1 Other 2 Other 3 Social History Tobacco Use Types Packs/Day Years Used Date Smoking Tobacco: Never Smokeless Tobacco: Never Alcohol Use Standard Drinks/Week Comments Never 0 (1 standard drink = 0.6 oz pur e alcohol) Humiliation, Afraid, Rape, and Kick questionnair e Answer Date Recorded Within the last year, have y ou been afraid of your partner or ex-partner? No 01/31/2025 Within the last year, have y ou been humiliated or emotionally abused in other ways by your partner or ex-partner? No Within the last year, have y ou been kicked, hit, slapped, or otherwise physically hurt by your partner or ex-partner? No 01/31/2025 Within the last year, have y ou been raped or forced to have any kind of sexual activity by your partner or ex-partner? No 01/31/2025 Hunger Vital Sign Answer Date Recorded Within the past 12 months, y ou worried that your food would run out before you got the money to buy more. Never true 02/01/20 25 Within the past 12 months, t he food you bought just didn't last and you didn't have money to get more. Never true 01/31/2025 PRAPARE - Transportation Answer Date Re corded In the past 12 months, has l ack of transportation kept you from medical appointments or from getting medications? No 01/20 In the past 12 months, has l ack of transportation kept you from meetings, work, or from getting things needed for daily living? No 01/31/2025 Housing Stability Vital Sign Answer Gordon e Recorded In the last 12 months, was t here a time when you were not able to pay the mortgage or rent on time? No 01/31/2025 Number of Times Moved in the Last Year Not on fi le 01/31/2025 At any time in the past 12 m [facility], were you homeless or living in a half-way (including now)? No 01/31/2025 Utilities Answer Date Recorded In the past 12 months has th e [employer], gas, oil, or water company threatened to shut off services in your home? No 01/31/2025 Comments Unknown Sex and Gender Information Value Date Recorded Sex Assigned at Not on file Legal Sex Female 8:24 PM EDT Gender Identity Not on file Sexual Orientation Not on file Last Filed Vital Signs Vital Sign Reading Time Taken Comments Blood Pressure 135/82 05/21/2025 1:49 PM EDT Pulse 91 05/21/2025 1:49 PM EDT Temperature 36.8 C (98.2 F) 05/21/2025 1:49 PM EDT Respiratory Rate 18 02/09/2025 8:14 AM EDT Oxygen Saturation 97% 05/21/2025 1:49 PM EDT RA Inhaled Oxygen Concentration - - Weight 54.4 kg (120 lb) 05/21/2025 1:49 PM EDT Height 160 cm (5' 3 ) 05/21/2025 1:49 PM EDT Body Mass Index 21.26 05/21/2025 1:49 PM EDT Plan of Treatment Health Maintenance Due Date Last Done Comments [facility]-Bone Density Scan 1940 [facility]-Depression Screening 1940 [facility]-Medicare Annual Wellness (AWV) 1940 [facility]-/Child/Adol SDOH Screenings 1940 [facility]-DTaP,Tdap,and Td Vaccines (1 - Tdap) 1961 [facility]Y-Zoster Vaccines (1 of 2) 1992 [facility]-RSV Vaccine: 60+ Years or (1 - 1-dose 75+ series) 2017 [id number] Vaccine ( - season) 2025 06/19/2021, 06/18/2021, 05/04/2021, Additional history exists [facility]-Influenza Vaccine (#1) 2025 [facility]- SDOH Screenings 08/03/2025 [facility]-Adult SDOH Screenings 08/03/2025 01/31/2025 [facility]Y-Pneumococcal Vaccine: 50+ Years Completed 05/21/2025 HPV Vaccines Aged Out No longer eligi ble based on patient's age to complete this topic [facility]Y-HIB Vaccines Aged Out No longer e ligible based on patient's age to complete this topic [facility]Y-Hepatitis A Vaccines Aged Out No longer eligible based on patient's age to complete this topic UKY-IPV Vaccines Aged Out No longer e ligible based on patient's age to complete this topic UKY-Rotavirus Vaccines Aged Out No lo nger eligible based on patient's age to complete this topic Insurance MEDICARE Advance Directives * Full Code (Latest Code Status on File) Date Activated Date Inactivated Comments 01/30/2025 4:42 AM 02/09/2025 11:42 AM Care Teams Shirt Folder Relationship Specialty Start Date End Date Barber Yousif MD [address] [place] [address] PCP - General 04/04/21
--- OUTSIDE RECORDS SUMMARY | 2025-10-22 21:16 | XMS_ITS | Encounter Summary ---
Author Organization [employer] ([place], [place], [place], [place], [place]) Address [address] [place] [address] Care Team Providers Care Horse Doctor Name Role Phone [facility], Provider Not In The System Primary Care Provider Unavailable Encounter Details Date Type Department Care Team (Late st Contact Info) Description 11/11/2021 Transcribed Document [facility] Family Medicine Count includes the [facility] [place] [address] ProviderKelvin MD [address] [place] [id number] Social History Tobacco Use Types Packs/Day Years Used Date Smoking Tobacco: Never Assessed Comments Unknown Sex and Gender Information Value Date Recorded Sex Assigned at Not on file Legal Sex Female 7:28 PM CDT Gender Identity Not on file Sexual Orientation Not on file documented as of this encounter Miscellaneous Notes * Cerner Conversion Note - Historical ProviderMD - 11/11/2021 3:22 PM TIRE MOLDER Orthopedic Nurse Navigator Entered On: 11/11/2021 15:22 EST Performed On: 11/11/2021 15:22 EST by STIVEN PARIKH RN-Ortho Nurse Navigator Orthopedic Nurse Navigator Assessment Anticipated Discharge Plan Comment : PAT notification email sent and message left on requesting call back. STIVEN PARIKH RN-Ortho Nurse Navigator - 11/11/2021 15:22 EST documented in this encounter Plan of Treatment Not on file documented as of this encounter Visit Diagnoses Not on filedocumented in this encounter Care Teams Horse Doctor Relationship Specialty Start Date End Date [facility], Provider Not In The System, [place] [address] PCP - General 03/01/24 documented as of this encounter
--- OUTSIDE RECORDS SUMMARY | 2025-10-22 21:16 | XMS_ITS | Encounter Summary ---
Author Organization [email or web address] ([place], [place], [place], [place], [place]) Address [address] [place] [address] Care Team Providers Care Bone Drier Name Role Phone [facility], Provider Not In The System MD Primary Care Provider Unavailable Encounter Details Date Type Department Care Team (Late st Contact Info) Description 11/08/2018 Transcribed Document [facility] Radiology [address] [place] [address] Annie Figueroa MD [address] [place] [address] Social History Tobacco Use Types Packs/Day Years Used Date Smoking Tobacco: Never Assessed Comments Unknown Sex and Gender Information Value Date Recorded Sex Assigned at Not on file Legal Sex Female 7:28 PM CDT Gender Identity Not on file Sexual Orientation Not on file documented as of this encounter Miscellaneous Notes * Cerner Conversion Note - Annie Figueroa MD - 11/08/2018 3:55 PM EST Patient: HANNY DUARTE Age: 78 years Sex: Female : 1940 Associated Diagnoses: None Author: AMITA RODRIGUEZ PA-NATALIE 11/08/18 cc: medical management s/p left total knee revision arthroplasty S: Pt is doing ok. No f'/c/s. No n/v/d. (-) gas. No CP, SOA, palpitations. No cough or sputum. Urinating well. surgery held. Had NM stress test, waiting on results. Wants to eat. HPI: Patient is a 78 yo [address] to [facility] per Dr. Becerra for a left total knee revision arthroplasty. Patient is followed perioperatively while hospitalized for medical management. Initial visit with patient and her family pre-operatively inthe waiting room. She reports initial left knee surgery 3 years ago at [facility] in [place].She reports progressive pain since that time. She reports taking antibiotics for a staph infection in her knee but has been off of them for awhile. She reports numerous chronic medical issues including history of 5 CVAs and 5 AMIs. She has a ppm and reports her underlying HR is in the 20s. She reports frequent chest pain but she did see Valentine Bardales MD for preop cardiac clearance. Her last heart cath wa sin 2016 with noted 90%RCA stenosis wit hinability to stent with collaterol circulation noted. She also report s hx of emphysema uses 2LNC QHS and nebulizers 4 x daily at home. Past Med Hx: Aneurysm (abdominal) Angina Arthritis At risk for sleep apnea Atrial fibrillation Back pain Basal cell cancer Bradycardia Cardiac arrhythmia Cardiac pacemaker Cataract COPD Coronary artery disease (90% blockage) Deep vein thrombosis (remote history) GERD - Gastro-esophageal reflux disease H/O: CVA x5 Heart failure Hypertension Impaired vision Insomnia Irritable bowel syndrome Lupus Migraine Myocardial infarction x5 Neuropathy Osteoporosis Oxygen dependent (Qhs and prn) Restless legs syndrome Shortness of breath (at rest and CHEUNG) Past Surg Hx: choleycystectomy hysterectomy left knee replacement right elbow surgery Family Hx: CAD (father) Social & Psychosocial Habits Alcohol 10/19/2018 Alcohol Use History, Social Habits No Substance Abuse 10/19/2018 Recreational Drug Use History No Recreational Drug Use Last 12 Months No Tobacco 10/19/2018 Smoking Status Never (less than 100 in l Smokeless Tobacco Status Never Allergies (5) Active Reaction Coconut Rash codeine None Documented Levaquin None Documented penicillin None Documented Tuna None Documented Home Medications (12) Active Advair Diskus 250 mcg-50 mcg inhalation powder 1 Puff, Inhalation, BID albuterol-ipratropium 2.5 mg-0.5 mg/3 mL inhalation solution 3 mL, Nebulized Inhalation, QID aspirin 81 mg oral delayed release tablet 81 mg = 1 Tab, Oral, Daily Bentyl 10 mg oral capsule 10 mg = 1 Cap, Oral, QID docusate-senna 50 mg-8.6 mg oral tablet 1 Tab, Oral, Daily enalapril 2.5 mg oral tablet 2.5 mg = 1 Tab, Oral, Daily Imdur 30 mg oral tablet, extended release 30 mg = 1 Tab, Oral, QAM mag-al ultimate strength 1 Tab, PRN, Oral, Daily Multiple Vitamins oral capsule 1 Cap, Oral, Daily naproxen 500 mg oral tablet 500 mg = 1 Tab, Oral, BID Nitrostat 0.4 mg sublingual tablet 0.4 mg = 1 Tab, PRN, SubLINgual, Q5Min simvastatin 20 mg oral tablet 20 mg = 1 Tab, Oral, At Bedtime Exam: Vitals Signs (last 24 hrs) Last Charted Minimum Maximum Temp 97.7 (NOV 08 06:14) 97.7 (NOV 08 06:14) 97.7 (NOV 07:) Mon HR 74 (NOV 08 07:55) 66 (NOV 07 18:14) 74 (NOV 08 07:55) Resp Rate 16 (NOV 08 06:14) 16 (NOV 07 18:14) 16 (NOV 07 18:14) SBP H 157 (NOV 08 06:14) 133 (NOV 08 03:45) H 157 (NOV 08 06:14) DBP 76 (NOV 08 06:14) L 54 (NOV 07:14) 76 (NOV 08 06:14) MAP 90 (NOV 08 06:14) 77 (NOV 07 18:14) 90 (NOV 08 06:14) SpO2 98 (NOV 08 08:00) 94 (NOV 07 18:14) 99 (NOV 08 03:45) PE: GEN: Alert, awake, NAD CV: S1S2, no murmur. No LE edema Resp: CTAB, NL Abd: Soft, NT, ND +BS Skin: no rashes on inspection and palpation. Ext: No LE edema. No joint edema, erythema. Neuro: A&O x 3 Data: CBC Results (Current Encounter/Past 24 Hours) WBC 7.3 K/uL 11/07/2018 15:10 Hct 41.0 % 11/07/2018 15:10 Hgb 13.9 g/dL 11/07/2018 15:10 Platelet Count 202 K/uL 11/07/2018 15:10 CMP Results (Current Encounter/Past 24 Hours) eGFR NonAfrican 81 mL/min/1.73m2 11/07/2018 15:31 Creatinine Level 0.70 mg/dL 11/07/2018 15:31 Globulin 3.0 Gram/dL 11/07/2018 15:31 eGFR 99 mL/min/1.73m2 11/07/2018 15:31 Protein Total 6.8 Gram/dL 11/07/2018 15:31 Bun/Creatinine 20.0 11/07/2018 15:31 A/G Ratio 1.3 11/07/2018 15:31 Sodium Level 144 mmol/L 11/07/2018 15:31 Potassium Level 3.8 mmol/L 11/07/2018 15:31 Chloride Level 111 mmol/L 11/07/2018 15:31 Carbon Dioxide Level 25 mmol/L 11/07/2018 15:31 Anion Gap 12 11/07/2018 15:31 Alk Phos 117 Units/Liter 11/07/2018 15:31 ALT 32 Units/Liter 11/07/2018 15:31 AST 17 Units/Liter 11/07/2018 15:31 Blood Urea Nitrogen 14 mg/dL 11/07/2018 15:31 Glucose Level 111 mg/dL OH 11/07/2018 15:31 Albumin Level 3.8 Gram/dL 11/07/2018 15:31 Bilirubin Total 0.6 mg/dL 11/07/2018 15:31 Calcium Level 8.7 mg/dL 11/07/2018 15:31 Magnesium Level 2.2 mg/dL 11/07/2018 15:30 Reviewed CBC, BMP, coags Reviewed R Blank cardiac note in chart 90%RCA stenosis, unable to stent Impression: left knee pain; awaiting LTK revision arthroplasty chest pain, cardiac evaluation is still pending results. hx Aneurysm (abdominal) 5.2 cm hx Angina hx Arthritis hx At risk for sleep apnea hx Atrial fibrillation hx Back pain hx Basal cell cancer hx Bradycardia hx Cardiac arrhythmia hx Cardiac pacemaker hx Cataract hx COPD hx Coronary artery disease (90% blockage) hx Deep vein thrombosis (remote history) hx GERD - Gastro-esophageal reflux disease H/O: CVA x5 hx Heart failure hx Hypertension hx Impaired vision hx Insomnia hx Irritable bowel syndrome hx Lupus hx Migraine hx Myocardial infarction x5 hx Neuropathy hx Osteoporosis hx Oxygen dependent (Qhs and prn) hx Restless legs syndrome hx Shortness of breath (at rest and CHEUNG) Plan: Cardiology evaluation. Waiting for NM test results. ECHO done. will defer to cardiology and ortho about surgical plans. telemetry on 6th floor 2LNC QHS as is home regimen Monitor HTN; add PRN's, hold parameters bowel regimen incentive spirometer PT/OT DVT prophylaxis noted Pain management deferred to surgeon will monitor hb/hct daily for signs of ongoing acute blood loss will monitor bun/cr daily for signs of dehydration, prerenal azotemia will monitor for signs/symptoms of post-op wound infection or hospital acquired infectious process resume outpatient medication regimen for comorbidities Assessment and treatment plan made in conjunction with Chriss Figueroa MD *Scribed by Yomaira Llanos documented in this encounter Plan of Treatment Not on file documented as of this encounter Visit Diagnoses Not on filedocumented in this encounter Care Teams Bone Drier Relationship Specialty Start Date End Date [facility], Provider Not In The System, [place] [address] PCP - General 03/01/24 documented as of this encounter
--- OUTSIDE RECORDS SUMMARY | 2025-10-22 21:16 | XMS_ITS | Encounter Summary ---
Author Organization Healthcare Address [address] [place] [address] Care Team Providers Care Wood Dowel Machine Operator Name Role Phone Barber Yousif MD Primary Care Provider [phone]- [phone] Encounter Details Date Type Department Care Team (Late st Contact Info) Description 08/28/2025 Telephone [facility] [address] [place] [address] Jagruti Daley, retail selling specialist None None Social History Tobacco Use Types Packs/Day Years [...] any time in the past 12 m [facility], were you homeless or living in a m[facility] (including now)? No 01/31/2025 Utilities Answer Date Recorded In the past 12 months has th e electric, gas, oil, or water company threatened to shut off services in your home? No 01/31/2025 Comments Unknown Sex and Gender Information Value Date Recorded Sex Assigned at Not on file Legal Sex Female 8:24 PM EDT Gender Identity Not on file Sexual Orientation Not on file documented as of this encounter Plan of Treatment Not on file documented as of this encounter Visit Diagnoses Not on filedocumented in this encounter Additional Health Concerns Assessment Noted Time A fall risk assessment has been complete d for the patient 05/21/2025 1:53 PM EDT A Body Mass Index follow-up plan has been documented for the patient 05/21/2025 3:22 PM EDT documented as of this encounter Care Teams Wood Dowel Machine Operator Relationship Specialty Start Date End Date Barber Yousif MD [address] [place] [address] PCP - General 04/04/21 documented as of this encounter
--- OUTSIDE RECORDS SUMMARY | 2025-10-22 21:16 | XMS_ITS | Encounter Summary ---
Author Organization Healthcare Address [address] [place] [address] Care Team Providers Care Straw Hat Brusher Name Role Phone Barber Yousif MD Primary Care Provider +1- [phone] Encounter Details Date Type Department Care Team (Late st Contact Info) Description 10/04/2025 Telephone [facility] [address] [place] [address] Guanaco Chavez, staff engineer None None Social History Tobacco Use Types [...] any time in the past 12 m [facility], were you homeless or living in a fci (including now)? No 01/31/2025 Utilities Answer Date [...] documented as of this encounter Care Teams Straw Hat Brusher Relationship Specialty Start Date End Date Barber Yousif MD [address] [place] [address] PCP - General 04/04/21 documented as of this encounter
--- OUTSIDE RECORDS SUMMARY | 2025-10-22 21:16 | XMS_ITS | Referral Summary ---
Author Organization [employer] ([place], [place], [place], [place], [place]) Address [address] [place] [address] Care Team Providers Care Metal Finish Inspector Name Role Phone [facility], Provider Not In The System MD Primary [...] Date Mc rded Speak language other than Vietnamese at home Not on file 02/11/2024 Want [...] 03/01/2024 6:34 PM EDT Plan of Treatment Not on file Medical Devices Implanted Type [employer] Project Manager Device Identifier Shelf Expiration Date Model / Serial / Lot Baseplt Revision Tib Sz 2 5612-B-200 - [id number] Implanted:Qt y: 1 on 03/01/2024 by Jerrod Becerra MD at [facility] IMPLANTS Left: Knee [employer]Q:[employer] [id number] 11/05/2028 5612-B-20 0 / / [id number] Hinge Bushings And Axle 5612-3-000 - [id number] Implanted:Qt y: 1 on 03/01/2024 by Jerrod Becerra MD at [facility] IMPLANTS Left: Knee [employer] [id number] 10/17/2028 5612-3-00 0 / / [id number] Cement Bone-Smplx Hv W-Gentam 6195-1-010 - [id number] Implanted:Qt y: 4 on 03/01/2024 by Jerrod Becerra MD at [facility] IMPLANTS Left: Knee [employer] [id number] 02/19/2025 6195-1-01 0 / / [id number] E Stem Cemented 12x50 Mm 5560-S-112 - [id number] Implanted:Qt y: 1 on 03/01/2024 by Jerrod Becerra MD at [facility] TOTAL JOINT CONSTRUCT Left: Knee [employer] [id number] 06/06/2028 5560-S-11 2 / / [id number] Comp Trthln Tib Hinge Sz 1-2 5612-0-001 - [id number] Implanted:Qt y: 1 on 03/01/2024 by Jerrod Becerra MD at [facility] [employer] Left: Knee [employer] [id number] 10/10/2028 5612-0-00 1 / / [id number] Ext Stem 25mm 5571-S-025 - [id number] Implanted:Qt y: 1 on 03/01/2024 by Jerrod Becerra MD at [facility] T[employer] Left: Knee [employer] [id number] 09/19/2028 5571-S-02 5 / / [id number] Triathlon Hinge Fem Sz2 10mm 5612-D-210 - [id number] Implanted:Qt y: 1 on 03/01/2024 by Jerrod Becerra MD at [facility] T[employer] Left: Knee [employer] [id number] 06/01/2028 5612-D-21 0 / / [id number] Comp Triathlon Hinge Fem Sz2 L 5612-F-201 - [id number] Implanted:Qt y: 1 on 03/01/2024 by Jerrod Becerra MD at [facility] TOTAL [employer] Left: Knee [employer] [id number] 07/20/2028 5612-F-20 1 / / [id number] Fem [facility] Jun1-2 Lt 5549-A-621 - [id number] Implanted:Qt y: 1 on 03/01/2024 by Jerrod Becerra MD at [facility] TOTAL [employer] Left: Knee [employer] [id number] 12/19/2028 5549-A-62 1 / / [id number] Stem Cemented 12x50 Mm 5560-S-112 - [id number] Implanted:Qt y: 1 on 03/01/2024 by Jerrod Becerra MD at [facility] TOTAL [employer] Left: Knee [employer] [id number] 04/21/2028 5560-S-11 2 / / [id number] Tib Sym Con Jun 5549-A-120 - [id number] Implanted:Qt y: 1 on 03/01/2024 by Jerrod Becerra MD at [facility] TOTAL [employer] Left: Knee [employer] [id number] 05/04/2028 5549-A-12 0 / / [id number] Insrt Triathlon Hinge Sz2 22mm 5612-P-222 - [id number] Implanted:Qt y: 1 on 03/01/2024 by Jerrod Becerra MD at [facility] T[employer] Left: Knee [employer] [id number] 06/13/2028 5612-P-22 2 / / [id number] Triathlon Hinge Bumper 5612-4-003 - [id number] Implanted:Qt y: 1 on 03/01/2024 by Jerrod Becerra MD at [facility] TOTAL [employer] Left: Knee [employer] [id number] 06/02/2028 5612-4-00 3 / / [id number] Insurance MEDICARE PART A B Advance Directives For more information, please contact: [phone] * Full Code (Latest Code Status on File) Date Activated Date Inactivated Comments 03/01/2024 5:41 PM 03/02/2024 2:28 PM * Full Code Date Activated Date Inactivated Comments 03/01/2024 9:52 AM 03/01/2024 5:41 PM Care Teams Metal Finish Inspector Relationship Specialty Start Date End Date Bello, Provider Not In The System, [place] [address] PCP - General 03/01/24
--- OUTSIDE RECORDS SUMMARY | 2025-10-22 21:17 | XMS_ITS | Data Portability ---
Author Organization [facility] - Darrell sumner, YURIS ORIENT CLOSED Address [address] [address] [place] [address] Care Team Providers Care Analyst [employer] Name Role Phone LUC ZHOU Primary Care Provider SRIKANTH HOOVER Arch Cushion Press Operator LISA JOSE Orthopedic Surgeon [phone] LUC ZHOU Referring Provider Assessment Encounter Date Assessment Date Assessment LastModified by Organization Details LastModified Time 07/03/2024 07/03/2024 Ms. Basurto is a very pleasant, 83 y.o. 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 She is s/p TKR with Dr. Jose earlier this year. Since that visit, the patient reports many symptoms, including chest pain, SOA, CHEUNG, PND, orthopnea, LE edema, palpitations, dizziness, and fatigue. She is here today for scheduled follow-up clinic visit RTC: 3 months for clinical reassessment Not available 07/04/2024 14:31:36 10/04/2024 10/04/2024 Ms. Basurto is a very pleasant, 84 y.o. 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 RTC: 4-6 weeks CV Studies: Mirela Not available 10/05/2024 18:59:34 Plan of Treatment Reminders Order Date Submit Date Provider Last Modified By Organization Details Last Modified Time Details Appointments None record ed. Lab None record ed. Referral None record ed. Procedures None record ed. Surgeries None record ed. Imaging None record ed. Medication Orders None record ed. Patient TargetsNo targets recorded. Patient Instructions Encounter Date Encounter Id Patient Instructions Last Modified By Organization Details Last Modified Time 07/03/2024 [id number] high blood pressure: care instructions Not available 07/03/2024 16:15:32 Reason for Referral None Reported. Results Created Date Observation Date Name Description Value Unit Range Abnormal Flag Note LastModifiedBy Organization Detail LastModifiedTime 06/13/20 24 06/13/2024 XR, joint , multi ple, 1 view [facility] Eric ia [address] [facility] [place] [address] Jeimynico arleth Name: RUBI reinoso : [id number] Patin[address] reinoso 6 Orderi ng Provid er: LISA RMAOS EXAM DATE: 2023 EXAM: XR LONG LEG LEFT/ JOINT SURVEY COMPAR JENNIFER: HISTOR Y: Follow -up of prior surger y. FINDIN GS: There is a semico nstrai yosi, revisi on left total knee arthro plasty in place. There is no eviden ce of loosen ing or compli cation . There is mild valgus angula tion. No fractu re is identi fied. There are mild degene rative change s in the left hip and mild degene rative change s in the ankle. IMPRES AD: 1. There is a left knee arthro plasty in place with mild valgus angula tion. Interp reted By: Shawnee caballero MD Electr onical ly Signed By: Shawnee caballero MD on 1:40 PM [email or web address] [facility] [place] [address] , [place], [address], 06/24/2024 07:05:49 07/03/20 24 07/03/2024 devic e check (PROC ) No observ ation record ed. Not Available 06/22 07:47:16 07/07/20 24 07/03/2024 glenny balderas am No observ ation record ed. [email or web address] Not Available 08:08:17 09/12/20 24 09/12/2024 [facility], [facility], [facility] [place] [facility] [address] [place] [address] Kenny t Name: RUBI reinoso : [address] rein[address] 6 Orderi ng Provid er: LISA RAMOS EXAM DATE: 2023 EXAM: XR LT KNEE 3 VIEWS COMPAR JENNIFER: 024 HISTOR Y: Follow -up of prior surger y. HEATHERIN GS: Again seen is a semico nstrai yosi, revisi on left knee total arthro plasty . There is no eviden ce of loosen ing. No fractu re is identi fied. Contra latera l knee: There are modera te degene rative change s. IMPRES AD: 1. There is a left latera l unicom partme ntal knee arthro plasty in place withou t eviden ce of loosen ing. Interp reted By: Shawnee caballero MD Electr onical ly Signed By: Shawnee caballero MD on 2023 3:14 PM [email or web address] [facility] [place] [address] , [place], [address], 09/16/2024 18:02:09 01/18/20 25 01/18/2025 US, doppl er echoc ardio gram, w/ color flow No observ ation record ed. [email or web address] [facility] Cardiology [address] , [place], [address], 01/25/2025 08:16:44 03/20/20 25 03/20/2025 xr lt knee 3 views [facility] [address] [place] [address] [phone] Patien t Name: RUBI reinoso : [address] rein[address] 6 Orderi ng Provid er: FER MONSALVE EXAM DATE: 2024 EXAM: XR LT KNEE 3 VIEWS COMPAR JENNIFER: 2023 HISTOR Y: Follow -up of prior surger rodrigo STAHL GS: Again seen is a semico nstrai yosi, hybrid left knee total arthro plasty . There is no eviden ce of loosen ing. No fractu re is identi fied. Contra latera l knee: There are mild degene rative change s. IMPRES AD: 1. There is a left total knee arthro plasty in place withou t eviden ce of loosen ing. Interp reted By: Shawnee caballero MD Electr onical ly Signed By: Shawnee caballero MD on 025 2:03 PM [email or web address] [facility] [address] [place], [address], 03/20/2025 15:59:11 Result Notes Documentation Provider Name and Address Organization Details Recorded Time Xr, Knee, 3 View : [facility] [place] [address] [place] [address] Patient Name: RUBI BASURTO Patient : [id number] Patient Ordering Provider: LISA JOSE EXAM DATE: 09/12/2024 EXAM: XR LT KNEE 3 VIEWS COMPARISON: 04/12/2024 HISTORY: Follow-up of prior surgery. FINDINGS: Again seen is a semiconstrained, revision left knee total arthroplasty. There is no evidence of loosening. No fracture is identified. Contralateral knee: There are moderate degenerative changes. IMPRESSION: 1. There is a left lateral unicompartmental knee arthroplasty in place without evidence of loosening. Interpreted By: Omer Valencia MD JOSE MD [address] [place] [address], [address], [facility] 09/16/2024 18:02:09 Problems Name Problem SNOMED Code Status Onset Date Resolution Date Notes Provider Name and Address Organization Details Recorded Time Coronary atheroscle rosis 989595399 Active 2015 Status: Active [facility] 8 15:30:20 Chronic obstructiv e pulmonary disease 35009110 Active 2015 Status: Active Not Available [facility] 6 06:47:50 Second degree atrioventr icular block 856838681 Active 2016 [facility] 8 15:30:20 Cardiac pacemaker in situ 265088671 Active 2016 JAZMÍN MALIK PA-C [address] [place] [address], [address] , [facility] 7 15:09:50 Pain associated with prosthesis of knee joint 462860229 Active 2017 [facility] 8 15:30:20 Periprosth etic fracture 331254896 Active 2017 [facility] 8 15:30:20 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 Procedures Surgical History Date Name Laterality Status Provider Name and Address Organization Details Recorded Time 01/18/20 25 Stress Test - Nuclear Lexiscan completed SRIKANTH HOOVER MD [address] [place] [address] [place], [address], [facility] 01/18/2025 18:39:39 10/04/20 24 EKG completed SRIKANTH HOOVER MD [address] [place], [address], [facility] 10/06/2024 18:24:28 07/03/20 24 EKG completed SRIKANTH HOOVER MD [facility], [address], [facility] 07/04/2024 14:32:18 07/03/20 24 Device Check completed SRIKANTH HOOVER MD [facility] [place], [address], [facility] 07/04/2024 14:31:54 03/01/20 24 revision of left total prosthetic knee arthroplasty completed Jody Mann [facility] 03/22/2024 10:28:48 07/08/20 23 Stress Test - Nuclear Lexiscan completed ALEXA BORREGO MD [address] [place], [address], [facility] 07/09/2023 09:26:44 06/24/20 23 EKG completed SRIKANTH HOOVER MD [facility], [address], [facility] 06/25/2023 09:28:28 10/13/20 22 Tympanogram completed CIERRA URIAS , AUD [address] [place], [address], [facility] 10/13/2022 15:55:43 10/13/20 22 Audiogram completed CIERRA URIAS , AUD [address] [place], [address], [facility] 10/13/2022 15:55:42 09/15/20 22 Echocardiogram completed ALEXA BORREGO MD [address] [place], [address], [facility] 09/15/2022 15:25:30 07/31/20 22 Stress Test - Nuclear Lexiscan completed LIN ECHEVARRIA MD [address] [place], [address], [facility] 07/31/2022 12:38:45 10/08/20 21 EKG completed JAZMÍN MALIK PA-C [address] [place], [address], [facility] 10/08/2021 13:59:37 09/16/20 21 Aspiration Joint/Bursa, Major completed DONTE MASTERS PA-C [address] [place], [address], [facility] 09/17/2021 18:48:59 03/21/20 21 Echocardiogram completed LIN ECHEVARRIA MD [address] [place], [address], [facility] 03/21/2021 17:26:34 07/18/20 20 Aspiration Joint/Bursa, Major completed LISA JOSE MD [address] [place], [address], [facility] 07/19/2020 16:26:27 02/06/20 20 EKG completed JAZMÍN MALIK PA-C [address] [place], [address], [facility] 02/06/2020 14:34:13 09/15/20 18 Aspiration Joint/Bursa, Major completed LISA JOSE MD [address] [place], [address], [facility] 09/15/2018 17:11:27 08/25/20 18 Aspiration Joint/Bursa, Major completed LISA JOSE MD [address] [place], [address], [facility] 08/28/2018 12:26:30 total replacement of left knee joint completed Jody Mann [facility] 01/10/2024 13:52:58 procedure on femur completed Sanford Kwong [facility] 01/10/2024 13:53:21 Imaging Results None recorded. Procedure Notes None recorded. Medical Equipment Implant [employer] Issuing Agency Serial Number Lot Number Status Provider Name and Address Organization Details Recorded Time Medtr[employer] FDA [id number] BETTIE Alonzo [facility] 10/28/2018 10:25:11 Allergies Allergen ID Allergen Name Allergen Category Reaction Reaction Severity Criticality Documentation Date Start Date Code Code System Note Provider Name and Address Organization Details Recorded Time 614884 codeine medicatio n Not available Not available Not available 10/16/20162011 2670 RxNorm Comme nt: Creat ed By: Jacob StanleyCrea boby Date: 2011 8:34: 03 AM; Not Available [facility] 6 02:42:27 624090 Product containin g penicilli n (product) medicatio n Not available Not available Not available 10/16/20162011 34451 8001 SNOMED Comme nt: Creat ed By: Jacob StanleyCrea boby Date: 2011 8:35: 07 AM; Not Available [facility] 6 05:05:17 577391 levofloxa santosh medicatio n Not available Not available Not available 11/10/2018 29029 RxNorm [facility] 8 15:30:19 Medications Name Sig Start Date Stop Date Status Note LastModified by Organization Details LastModified Time atorvasta tin 40 mg tablet Take 1 tablet every day by oral route. active Not Available Not Available No t Available Isosorbid e Mononitra te CR 30 mg tablet,ex tended release Every morning 07/03 completed Duration : 10 days;Yogesh quency: qam;Medi cation Descript ion: isosorbi de mononitr ate; Dosage:1 ; Route:or al; refills: 0; Quantity :30 tablet, extended release Not Available Not Available Not Available tramadol 50 mg tablet Take 1 tablet every 6 hours by oral route. 2023 active Not Available Not Available Not Avai lable Vasotec 5 mg tablet Daily 2011 active Duration : 30 days;Yogesh quency: daily;Me dication Descript ion: enalapri l; Dosage:1 ; Route:or al; refills: 5; Quantity :30 tablet Not Available Not Available Not Available isosorbid e mononitra te ER 60 mg tablet,ex tended release 24 hr Take 1 tablet every day by oral route. 2022 active Not Available Not Available Not Avai lable Nitrostat 0.4 mg sublingua l tablet As needed 2023 active Frequenc y: prn;Medi cation Descript ion: nitrogly cerin; Dosage:a s directed ; Route:amaya blingual ; refills: 0 Not Available Not Available Not Available hydrocodo ne 7.5 mg-acetam inophen 325 mg tablet Every six hours 10/13 completed Frequenc y: q6h;Alt Frequenc y: prn;Medi cation Descript ion: hydrocod one bitartra te/aceta minophen ; Dosage:1 ; Route:or al; refills: 0; Quantity :45 tablet Not Available Not Available Not Available Pravachol 20 mg tablet Daily 10/20 completed Frequenc y: daily;Me dication Descript ion: pravasta tin; Dosage:1 ; Route:or al; refills: 5; Quantity :30 tablet Not Available Not Available Not Available Advair Diskus 250 mcg-50 mcg/dose powder for inhalatio n Two times a day active Duration : 30 days;Yogesh quency: bid;Alt Frequenc y: as direct.; Medicati on Descript ion: fluticas one-salm eterol; Dosage:1 inhalati on; Route:in halation ; refills: 0; Quantity :1 powder Not Available Not Available Not Available aspirin 81 mg tablet Daily 2011 active Duration : 30 days;Yogesh quency: daily;Me dication Descript ion: aspirin; Dosage:1 ; Route:or al; refills: 0; Quantity :30 tablet Not Available Not Available Not Available Percocet 5 mg-325 mg tablet Take 1 tablet every 8 hours by oral route as needed. 2023 active Not Available Not Available Not Avai lable naproxen 500 mg tablet Two times a day 2017 active Frequenc y: bid;Medi cation Descript ion: naproxen ; Dosage:1 ; Route:or al; refills: 5; Quantity :60 tablet Not Available Not Available Not Available Excedrin Extra Strength 250 mg-250 mg-65 mg tablet As needed 10/20 completed Frequenc y: prn;Medi cation Descript ion: APAP/ASA /caffein e; Dosage:a s directed ; Route:or al; refills: 0 Not Available Not Available Not Available Ranexa 500 mg tablet,ex tended release Take 1 tablet twice a day by oral route. 2023 active Not Available Not Available Not Avai lable Symbicort 80 mcg-4.5 mcg/actua tion HFA aerosol inhaler Inhale 2 puffs twice a day by inhalati on route. active Not Available Not Available No t Available oxygen prn active Not Available Not Availa ble Not Available Vitals Date Recorded Body height Body mass index (BMI) Body weight Provider Name and Address Organization Details Last Updated DateTime 03/20/2025 160.02 cm 25 kg/m2 43298.52 g Tan Ash [facility] 03/20/2025 13:49:19 Date Recorded Body height Body mass index (BMI) Body weight Oxygen saturation Heart rate Systolic And Diastolic Provider Name and Address Organization Details Last Updated DateTime 4 160.02 cm 23.4 kg/m2 58533.1 9 g 94 % 79 /min 132/80 mm[Hg] Yolanda Mcgee [facility] 4 15:14:55 Date Recorded Body height Body mass index (BMI) Body weight Provider Name and Address Organization Details Last Updated DateTime 09/12/2024 160.02 cm 23 kg/m2 27197.01 g Wendy Couch [facility] 09/12/2024 14:09:37 Date Recorded Body height Body mass index (BMI) Body weight Oxygen saturation Respiratory rate Heart rate Systolic And Diastolic Provider Name and Address Organization Details Last Updated DateTime 160.02 cm 25 kg/m2 06262.2 4 g 96 % 16 /min 98 /min 120/84 mm[Hg] Fidelia Sprague [facility] 4 16:14:52 Social History Question Answer Notes LastModified by Organizat ion Details LastModified Time Tobacco Smoking Status Never Smoker Hayley Alexandra [facility] 08/25/2018 14:27:11 How Much Tobacco Do You Chew? None Information not available 02/06/2020 What Was The Date Of Your Most Recent Tobacco Screening? 10/04/2024 [email or web address] Information not available 10/04/2024 Has Tobacco Cessation Counseling Been Provided? No Information not available 10/13/2022 Have You Recently Traveled Abroad? No Information not available 10/13/2022 Sex: Female Functional Status Question Answer Note LastModified by Organizat ion Details LastModified Time Do you use any illicit or recreational drugs? No Information not available 10/13/2022 Do you or have you ever used any other forms of tobacco or nicotine? No [email or web address] Information not available 01/10/2024 What is your level of alcohol consumption? None Information not available 03/22/2024 Do you or have you ever used smokeless tobacco? Never used smokeless tobacco Information not available 02/06/2020 Do you or have you ever used e-cigarettes or vape? Never used electronic cigarettes Information not available 02/06/2020 Mental Status None recorded. Family History Relationship Description Onset Age of this Age Resolved Age Notes LastModified by Organization Details LastModified Time Father Heart disease Not available 2021 15:19:05 Father Hypertensive disorder Not available 2021 15:19:28 Sister Heart disease Not available 2021 15:19:06 Sister Hypertensive disorder Not available 2021 15:19:28 Mother Hypertensive disorder Not available 2021 15:19:28 Brother Hypertensive disorder Not available 2021 15:19:28 Brother Aneurysm [email or web address] Not availa ble 06/25/2023 10:46:43 Medical History Condition Response Allergies/Hayfever Y Anxiety/Depression N Gout N Other N Thyroid Disease N Heart Conditions Y Kidney Stones N Hernia N Migraines Y Glaucoma N COPD Y Pneumonia N Skin Problems Y Immune System Disorder N Anesthesia Complications N Heart Attack ([place]) Y Mental Illness N Neurological Problems N Diabetes Y Rheumatic Fever N Bleeding Disorder N Seizures/Epilepsy N Arthritis Y Blood Clot N Tuberculosis N Genetic Disorder N AIDS/HIV N Cancer Y Stroke N Asthma Y Blood Thinners Y Sleep Apnea N Alcohol Overuse/Alcohol Abuse N High Cholesterol Y Liver Disease N Included as Review of Systems N Headaches Y Hypertension Y Osteoporosis N Kidney Disease N Gynecological HistoryNo gynecological history recorded. Obstetrics History GPAL:G 0 P 0 0 0 0 Immunizations Vaccine Type Date Status Note Provider Nam e and Address Organization Details Recorded Time COVID-19, mRNA, LNP-S, PF, 100 mcg/0.5mL dose or 50 mcg/0.25mL dose 05/04/2021 completed [facility] 03/20/2025 14:20:04 COVID-19, mRNA, LNP-S, PF, 100 mcg/0.5mL dose or 50 mcg/0.25mL dose 06/19/2021 completed [facility] 03/20/2025 14:20:04 Past Encounters Encounter ID Performer Location Encounter Start Date Encounter Closed Date Diagnosis/Indication Diagnosis SNOMED-CT Code Diagnosis ICD10 Code Diagnosis IMO Codes Diagnosis Note [id number] JAZMÍN MALIK PA-C CARDIOLOG Y [address] ,[address] [place] [address] 5 07/07/2017 13:50:06 07/07/2017 16:30:39 Second degree atrioventricular block 418677879 I44.1 Cardiac pa cemaker in situ 952448178 Z95.0 [id number] LISA Winkler MD ORTHOPEDI CS [address] [place] [address] 5 08/25/2018 14:07:27 08/25/2018 15:35:31 Pain associated with prosthesis of knee joint 592124976 T84.84XA Periprosth etic fracture 186139615 M97.12XA 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 871068993 M23.52 [id number] LISA Winkler MD ORTHOPEDI CS [address] [place] [address] 5 09/15/2018 13:53:58 09/16/2018 17:24:24 Pain associated with prosthesis of knee joint 122978350 T84.84XA Periprosth etic fracture 292367555 M97.12XA 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 404130972 M23.52 [id number] JAZMÍN MALIK PA-C CARDIOLOG Y [address] [place] [place], [place] [address] 10/20/2018 13:14:46 10/20/2018 16:06:49 Coronary atherosclerosis 019387502 I25.10 Second deg ree atrioventricular block 706100682 I44.1 Cardiac pa cemaker in situ 162907513 Z95.0 [id number] JAZMÍN MALIK PA-C CARDIOLOG Y [address] [place],[address] [place] [address] 11/28/2018 13:37:34 11/28/2018 15:48:39 Coronary atherosclerosis 095462033 I25.10 Second deg ree atrioventricular block 702852859 I44.1 Cardiac pa cemaker in situ 566843917 Z95.0 [id number] JAZMÍN MALIK PA-C CARDIOLOG Y [address] [place],[address] [place] [address] 5 06/12/2019 15:04:59 06/12/2019 16:09:08 Coronary atherosclerosis 063727661 I25.10 Second deg ree atrioventricular block 701849132 I44.1 Cardiac pa cemaker in situ 669480083 Z95.0 [id number] JAZMÍN MALIK PA-C CARDIOLOG Y [address] [place] [address] 5 02/06/2020 13:29:34 02/06/2020 14:41:34 Coronary atherosclerosis 871519674 I25.10 Second deg ree atrioventricular block 506310435 I44.1 Cardiac pa cemaker in situ 903685434 Z95.0 [id number] LISA Winkler MD ORTHOPEDI CS [place] [facility] [address] [place] [address] 07/18/2020 13:07:23 07/18/2020 14:36:44 Pain associated with prosthesis of knee joint 682892266 T84.84XA Periprosth etic fracture 010983437 M97.12XA 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 The patient is otherwise doing well on current management . No new active problems identified . Chronic problems are all stable. Patient is to continue current regimen without change. All questions answered and regimen reviewed. Patient is to call for any change in status Second deg ree atrioventricular block 344270438 I44.1 status post MRI compatible Medtronic pacemaker 05/2017 Cardiac pa cemaker in situ 704212647 Z95.0 normal function estimated longevity 5 years. 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 We'll schedule a preoperati ve Myoview stress test for surgical risk stratifica tion Second deg ree atrioventricular block 591299713 I44.1 status post MRI compatible Medtronic pacemaker 05/2017 Cardiac pa cemaker in situ 280529655 Z95.0 normal function estimated longevity 5 years. Findings discussed with the patient Abdominal aortic aneurysm screening offered 391279088 Z78.9 patient reports a history of AAA. No evidence of this in her chart. We'll schedule aortic ultrasound for evaluation [id number] JAZMÍN MALIK PA-C CARDIOLOG Y [place] [address] [place] [address] [place] [place] [address] 07/31/2022 08:23:23 07/31/2022 11:10:58 Coronary atherosclerosis 384891914 I25.10 chronic atypical chest pain. Myoview stress test is pending Second deg ree atrioventricular block 697810371 I44.1 status post MRI compatible Medtronic pacemaker 05/2017 Cardiac pa tiffani in situ 228449436 Z95.0 normal function estimated longevity 5 years. Findings discussed with the patient [id number] LIN ECHEVARRIA MD [facility] [address] [place] [address] [address] [place] [address] 07/31/2022 08:26:01 07/31/2022 12:41:34 [id number] ALEXA BORREGO MD E[facility] LAB CLOSED [address] [place] [address] [place] [address] 09/15/2022 13:39:25 09/16/2022 13:02:08 Atherosclerosis of coronary artery without angina pectoris [id number] I25.10 [id number] PHILLIP ORONA MD [place] [facility] [facility] CLOSED [address] [facility] [place] [address] 10/13/2022 15:05:54 10/13/2022 16:16:43 Sensorineural hearing loss of bilateral ears [id number] H90.3 [id number] ALICIA FOWLER [place] [facility] CLOSED [address] [facility] [place] [address] 10/13/2022 15:10:07 10/13/2022 16:12:26 Sensorineural hearing loss of bilateral ears [id number] H90.3 Dysfunctio n of right eustachian tube [id number] H69.91 [id number] DONTE MASTERS PA-C [facility]ED[facility] CLOSED [address] [place] [address] 06/01/2023 13:44:15 06/01/2023 15:42:23 History of total knee arthroplasty [id number] 105 Z96.652 Postoperative care 18939 9007 Z48.89 Pain assoc iated with prosthesis of knee joint 267279269 T84.84XA Periprosth etic fracture 210693650 M97.12XA 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 paced rhythm, rate=89, normal axis, QTc= 497 ms. I recommend that patient undergo LexiScan nuclear stress testing and Echocardio gram in the near future (prior to upcoming orthopedic surgery). If these tests reveal no significan t changes vs. the 2021 studies (see below for 2021 test results), then patient may proceed with planned orthopedic surgery without additional pre-operat cristel CV testing. Cardiac pa cemaker in situ [id number] Z95.0 EKG today - V. paced rhythm, rate=89, normal axis, QTc= 497 ms.patient 's cardiac device is working well; no recent programmin g changes; recommend home monitoring of device q 3 months, and interrogat ion in the office q 1 year.Devic e check today - normal function of dual chamber pacemaker, battery life = 3 years, A. pacing = 10%, V. pacing = 100%. Chest pain 46664411 R07. 9 Patient reports chronic chest pain, SOA, and CHEUNG. She has a h/o CAD and COPD. LexiScan nuclear stress test (07/31/22):1 . Abnormal myocardial perfusion study.2. There is a large size, moderate intensity fixed perfusion defect in the mid to distal inferior and apical carrillo.This defect is consistent with an area of myocardial scar. No reversible perfusion defects.3. Normal LV size with reduced systolic function. Calculated ejection fraction 37%. Echocardio gram (09/15/22) :1. Concentric LVH with low normal LV function. LVEF 50+/- 5%2. Moderate mitral regurgitat ion3. Mild to moderate aortic regurgitat ion4. Pacer wire noted in the right heart5. No significan t change compared to previous study done at [facility] on 03/21/2021. Since these symptoms have reportedly worsened since the last office visit and the patient will likely be undergoing an orthopedic surgery in the fall, I recommend that she undergo Echocardio gram and LexiScan nuclear stress testing in the near future. Dyspnea on exertion 6084 5006 R06.09 Patient reports chronic chest pain, SOA, and CHEUNG. She has a h/o CAD and COPD. LexiScan nuclear stress test (07/31/22):1 . Abnormal myocardial perfusion study.2. There is a large size, moderate intensity fixed perfusion defect in the mid to distal inferior and apical carrillo.This defect is consistent with an area of myocardial scar. No reversible perfusion defects.3. Normal LV size with reduced systolic function. Calculated ejection fraction 37%. Echocardio gram (09/15/22) :1. Concentric LVH with low normal LV function. LVEF 50+/- 5%2. Moderate mitral regurgitat ion3. Mild to moderate aortic regurgitat ion4. Pacer wire noted in the right heart5. No significan t change compared to previous study done at [facility] on 03/21/2021. Since these symptoms have reportedly worsened since the last office visit and the patient will likely be undergoing an orthopedic surgery in the fall, I recommend that she undergo Echocardio gram and LexiScan nuclear stress testing in the near future. [id number] ALEXA BORREGO MD [facility] [address] [place] [address] 07/08/2023 12:23:50 07/09/2023 16:19:30 Coronary arteriosclerosis [id number] I25.10 [id number] SRIKANTH HOOVER MD CARDIOLOG Y [address] [place] [address] 09/29/2023 14:03:23 09/30/2023 05:08:01 Chest pain 81019611 R07.9 Patient has chronic anginal type chest pain from coronary artery disease. She has history of inferior wall and apical wall scar seen on previous nuclear stress tests in 2021 and 2022. Per chart review, she has a history of a 90% distal RCA stenosis that was not amenable to PCI. Recent echo revealed LVEF=45-50 %. Recommenda tions:1)In crease Imdur to 60 mg po qd (Rx to be sent to her pharmacy)2 )Continue with NTG SL PRN3)If chest pain worsens in frequency or duration by next visit, consider adding Ranexa 500 mg p.o. twice daily to her regimen. Pre-surger y evaluation 382316122 Z01.818 At last visit, patient complained of worsening of chronic chest pain, SOA, and CHEUNG.EKG at last visit- V. paced rhythm, rate=89, normal axis, QTc= 497 ms. Lexiscan nuclear stress test (07/08/23): 1. Fixed inferior mid to distal and apical defect suggestive of scar tissue.2. No obvious evidence of inducible ischemia or previous MI3. Abnormal LV function. LVEF- 39%4. Findings are similar to Myoview stress test done on 07/31/2022. Echocardio gram (07/08/23): Left ventricula r ejection fraction 45% - 50% with anteroapic al dyskinesia , normal RV size and function, normal atrial dimensions , moderate AI, mild MR, mild TR, estimated RV systolic pressure of 26 mmHg, normal aortic root and ascending aorta, no pericardia l effusion or intracavit hu masses. Recommenda tion:Patie nt may proceed with planned orthopedic surgery in the near future without additional , preoperati ve, cardiovasc ular testing. [id number] FER MONSALVE PA-C [facility] CLOSED [address] [address] 01/10/2024 13:42:58 01/10/2024 14:23:56 Pain associated with prosthesis of knee joint 338703707 T84.84XA ASSESSMENT : medial instabilit y s/p L TKA, Im nailing periprosth etic distal femur fxPLAN:Ove rall, her inflammato ry markers, cell count, neutrophil percentage , and Synovasure testing (09/17/21) are all within normal limits. She has been seen 01/06/24 for cardi[address] clearance by Dr. Hoover. Per 01/06/24 note Recom mendation: Patient may proceed with planned orthopedic surgery in the near future without additional , preoperati ve, cardiovasc ular testing. From her previous discussion with - From a reconstruc tive standpoint , we will plan on removal of her nail, and reconstruc tion in a single stage. I think it would be most prudent to proceed directly with a hinged component, with cemented stems, given her age and other comorbidit ies. Some considerat ion could be given to a press-fit stem on the femoral side. We discussed surgery extensivel y, difficult conversati on, patient had trouble understand ing concept and daughter was frustrated with mother. It became increasing ly difficult and daughter was verbally upset with her mother and she left the room. I tried my best to explain everything in detail and how we will get her set up for appointmen t with Dr. Ivy to discuss further. I answered all questions and concerns. Will set up for repeat formal surgical discussion with Dr. Ivy with full risks/bene fits discussed and any further questions answered since she has received cardiac clearance Hospital: [facility] nt: Some dementia/c onfusion on exam today, difficult with strained relationsh ip with daughter (seen on today's visit), emphysema, extensive cardiac history, atheroscle rosis, hx of CVA, hx of medtronic pacemaker A total of 35 min of face-to-fa ce time was spent with the patient during this encounter, with >50% spent on counseling , review of imaging, review of records, discussion of treatment options and their attendant risks/bene fits, and coordinati on of care. 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 paced rhythm, rate=89, normal axis, QTc= 497 ms. Lexiscan nuclear stress test (07/08/23): 1. Fixed inferior mid to distal and apical defect suggestive of scar tissue.2. No obvious evidence of inducible ischemia or previous MI3. Abnormal LV function. LVEF- 39%4. Findings are similar to Myoview stress test done on 07/31/2022. Echocardio gram (07/08/23): Left ventricula r ejection fraction 45% - 50% with anteroapic al dyskinesia , normal RV size and function, normal atrial dimensions , moderate AI, mild MR, mild TR, estimated RV systolic pressure of 26 mmHg, normal aortic root and ascending aorta, no pericardia l effusion or intracavit hu masses. Recommenda tion:Patie nt may proceed with planned orthopedic surgery in the near future without additional , preoperati ve, cardiovasc ular testing. Chest pain 80326441 R07. 9 Patient has chronic anginal type chest pain from coronary artery disease. She has history of inferior wall and apical wall scar seen on previous nuclear stress tests in 2021 and 2022. Per chart review, she has a history of a 90% distal RCA stenosis that was not amenable to PCI. Most recent echo revealed LVEF=45-50 %. Recommenda tions:1)At the last office visit, I Increased Imdur to 60 mg po qd.2)Aaron nue with NTG SL PRN3)If chest pain worsens in frequency or duration by next visit, consider adding Ranexa 500 mg p.o. twice daily to her regimen. Coronary atherosclerosis 059827622 I25.10 Patient has chronic anginal type chest pain from coronary artery disease. She has history of inferior wall and apical wall scar seen on previous nuclear stress tests in 2021 and 2022. Per chart review, she has a history of a 90% distal RCA stenosis that was not amenable to PCI. Most recent echo revealed LVEF=45-50 %. Recommenda tion: Continue with current medication s. [id number] LISA Winkler MD [facility]I [facility] CLOSED [address] [address] 02/08/2024 13:18:12 02/08/2024 14:31:48 Pain associated with prosthesis of knee joint [id number] T84.84XA ASSESSMENT : medial instabilit y s/p L TKA, Im nailing periprosth etic distal femur fx PLAN:Overa ll, her inflammato ry markers, cell count, neutrophil percentage , and Synovasure testing are all within normal limits. She has been seen and evaluated by Dr. Hoover, and cleared for surgical interventi on without additional testing. She is at high risk for a cardiac event, however. From a reconstruc tive standpoint , we will plan on removal of her nail, and reconstruc tion in a single stage. I think it would be most prudent to proceed directly with a hinged component, with cemented stems, given her age and other comorbidit ies. We reviewed the risks, benefits, and alternativ es to revision knee replacemen t surgery. We discussed the risk of infection, neurovascu lar injury, chronic pain, stiffness, instabilit y, aseptic loosening, and component wear. We discussed the risk of medical complicati ons, including but not limited to, VTE, pulmonary complicati ons, cardiac complicati ons, and stroke. All questions were answered to the best of my ability. She does remain at extremely high risk for complicati ons due to comorbidit ies including CAD, arrythmia/ heart block, and COPD. Surgery date: 03-01-24 [facility] equipment: [facility] hinge, cones, stems, Rhonda nail removal, drain, PICOPre-op clearance: PASS, LC Cardiology DVT prophylaxi s: ASA, TEDAdmissi on status: INPATIENTD ischarge plan[facility] Allergies: PCNSkin testing: No Periprosth etic fracture 829890326 M97.12XA Plan to remove nail, and reconstruc t in a single stage. Previous history of open surgery does increase her risk for complicati ons including superficia l and deep periprosth etic joint infection. 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 She has been evaluated by Dr. Hoover, without need for additional cardiac testing. This history does increase her risk for cardiac events following surgery, including myocardial infarction , sudden cardiac , arrhythmia s, etc. Cardiac kali nixon in situ [id number] Z95.0 Second deg ree atrioventricular block 270635869 I44.1 Pacemaker placed. She does remain at high risk for complicate d arrhythmia s following surgery. [id number] LISA Winkler MD SURGERY SCHEDULE [address] [place] [address] 03/01/2024 11:20:17 03/07/2024 10:53:18 [id number] LINDA URRUTIA PA-C [facility] CLOSED [address] [facility] [address] 03/22/2024 09:47:27 03/22/2024 11:09:21 History of revision of left total knee arthroplasty 4088945112 76465 Z96.652 Ms. Clarke is an 83-year-ol d woman who underwent a left TKA at [facility] several years ago. She sustained fracture which was approximat neva manage with an IM nail. She also developed severe MCL insufficie ncy. Workup for infection was negative. Ultimately , Dr. Cata seymour removal of her IM nail with conversion to a hinged revision TKA. She is present today 3 weeks status post removal IM nail with conversion to a hinged revision TKA. Patient continuing to exhibit a mild to moderate amount of pain in the left knee. She is currently at [facility]. Going forward she will continue to weight-yaneli r as tolerated. Finished up DVT prophylaxi s. We may discontinu e the knee immobilize r and begin slow increments of range of motion. Per report, she has not been working much with therapy at this time. Highly encouraged to increase this as tolerated. Patient may get the incision wet but do not submerge. At this juncture, also would utilize a walker at all times. Radiograph s demonstrat e a revision of the left TKA. No evidence of loosening. No periprosth etic fracture. These are within normal limits. Patient will return to clinic in approximat e 3 weeks for routine check on progress as well as radiograph s. [id number] LINDA URRUTIA PA-C [facility] CLOSED [address] [place] [address] 04/12/2024 13:33:19 04/12/2024 14:42:21 History of revision of left total knee arthroplasty [id number] 67127 Z96.652 Ms. Clarke is an 83-year-ol d woman who underwent a left TKA at [facility] several years ago. She sustained fracture which was approximat neva manage with an IM nail. She also developed severe MCL insufficie ncy. Workup for infection was negative. Ultimately , Dr. Cata salazar d removal of her IM nail with conversion to a hinged revision TKA. Patient has significan t comorbidit ies. She is present today 6- weeks status post removal IM nail with conversion to a hinged revision TKA. Patient continuing to exhibit severe pain in the left knee in which she reports has been steady since before surgery. She has returned home now where her daughter iscaring for her full-time. Going forward she will continue to weight-yaneli r as tolerated. Continue working towards slow increments of ROM. Per report, she has not been working much with therapy at this time. Highly encouraged to increase this as tolerated. Patient may get the incision wet but do not submerge. Continue using a walker at all times. Radiograph s demonstrat e a revision of the left TKA, hinged component with cemented stems.No evidence of loosening. No periprosth etic fracture. These are within normal limits. Patient will return to clinic in approximat e 8 weeks for routine check on progress as well as radiograph s. [id number] LISA Winkler MD [facility]EDI [facility] CLOSED [address] [address] 06/13/2024 13:23:06 06/13/2024 14:57:31 History of revision of left total knee arthroplasty [id number] 51373 Z96.652 ASSESSMENT : 3 months revision left TKA, hinge PLAN: Rubi is doing fairly well at 3 months. At this point, I recommend that she continue with her home exercises. She should continue to use her walker for balance. She may submerge her incision. We will see her back in 3 months, with repeat radiograph s, including merchant views. Likely discharge to annual follow-up at that point. [id number] SRIKANTH HOOVER MD CARDIOLOG Y [address] [place] [address] 07/03/2024 14:53:56 07/03/2024 15:50:21 Cardiac pacemaker in situ 058036163 Z95.0 EKG (01/06/24) - V. paced rhythm, rate=89, normal axis, QTc= 497 ms.patient 's cardiac device is working well; no recent programmin g changes; recommend home monitoring of device q 3 months, and interrogat ion in the office q 1 year. Device check (01/06/24) - normal function of dual chamber pacemaker, battery life = 3 years, A. pacing = 10%, V. pacing = 100%. Device checked today by Yolanda (the clinical research tech):Batte ry life today = 2.5 years, DDDR 60/130 bpm, time in AT/AF<0.1% . EKG (07/03/24) - V. paced rhythm, rate=79, JCh=030 ms. Essential hypertension 75010002 I10 BP today was = 132/80 mmHg; continue with current meds. - ISMN 60 mg po qd, Vasotec. Patient is recommende d to check BPs at home periodical ly & bring BP log to next visit. A low sodium (< 2000 mg/day) diet is also recommende d. Coronary atherosclerosis 803788804 I25.10 Patient has chronic anginal type chest pain from coronary artery disease. She has history of inferior wall and apical wall scar seen on previous nuclear stress tests in 2021 and 2022. Per chart review, she has a history of a 90% distal RCA stenosis that was not amenable to PCI. Most recent echo revealed LVEF=45-50 %. EKG (07/03/24) - V. paced rhythm, rate=79, WGc=937 ms. Recommenda tion: Continue with current medication s. Fatigue 24727188 R53.83 This is likely multifacto rial in nature, and worse recently due to further deconditio tommy post-ortho pedic surgery. RECOMMENDA TION: Continue with PT & f/u with PCP for this issue Dyspnea on exertion 6084 5006 R06.09 Patient reports chronic chest pain, SOA, and CHEUNG. She has a h/o CAD and COPD. LexiScan nuclear stress test (07/31/22):1 . Abnormal myocardial perfusion study.2. There is a large size, moderate intensity fixed perfusion defect in the mid to distal inferior and apical carrillo.This defect is consistent with an area of myocardial scar. No reversible perfusion defects.3. Normal LV size with reduced systolic function. Calculated ejection fraction 37%. Echocardio gram (09/15/22) :1. Concentric LVH with low normal LV function. LVEF 50+/- 5%2. Moderate mitral regurgitat ion3. Mild to moderate aortic regurgitat ion4. Pacer wire noted in the right heart5. No significan t change compared to previous study done at [facility] on 03/21/2021. Echocardio gram (07/08/23): LVEF=45-50 % with anteroapic al dyskinesis Normal RV size & function; normal atrial sizesNorma l aortic dimensions Moderate AI/Mild TR/Mild MRRVSP=26 mmHgNo pericardia l effusion LexiScan nuclear stress testing (07/08/23): 1. Fixed inferior mid to distal and apical defect suggestive of scar tissue.2. No obvious evidence of inducible ischemia or previous MI3. Abnormal LV function. LVEF- 39%4. Findings are similar to Myoview stress test done on 07/31/2022 RECOMMENDA TION: No additional CV tests recommende d at this time.-If patient reports recurrent/ chronic CHEUNG and chest pain at next office visit in 3 months, then I would consider repeating echo +- stress test. [id number] LISA Winkler MD [facility]OPEDI [facility] CLOSED [address] [place] [address] 09/12/2024 13:49:05 09/12/2024 14:53:25 History of revision of left total knee arthroplasty [id number] 25401 Z96.652 ASSESSMENT : 6 months revision left TKA, hinge PLAN:Rubi is doing fairly well at 3 months. At this point, I recommend that she continue with her home exercises. She may submerge her incision. At this point, I think it is reasonable for her to attempt to transition to a quad cane, which her physical therapist has recommende d as well. A prescripti on for this was provided. She should continue to use extreme caution to avoid a fall, as she is at high risk for periprosth etic fracture. She may resume activities as tolerated. Follow-up in 6 months, with repeat x-rays. [id number] SRIKANTH HOOVER MD CARDIOLOG [address] [place] [address] 10/04/2024 15:34:17 10/12/2024 08:42:26 Coronary atherosclerosis 166030361 I25.10 Patient has chronic anginal type chest pain from coronary artery disease. She has history of inferior wall and apical wall scar seen on previous nuclear stress tests in 2021 and 2022. Per chart review, she has a history of a 90% distal RCA stenosis that was not amenable to PCI. Most recent echo revealed LVEF=45-50 %. EKG (07/03/24) - V. paced rhythm, rate=79, UMp=169 ms. EKG (10/04/24) - V. paced rhythm, rate=96, normal axis, QTc= 469 ms. Recommenda tion: Continue with current medication s. Fatigue 66718169 R53.83 This is likely multifacto rial in nature, and worse recently due to further deconditio tommy post-ortho pedic surgery. RECOMMENDA TION: Continue with PT & f/u with PCP for this issue Dyspnea on exertion 6084 5006 R06.09 Patient reports chronic chest pain, SOA, and CHEUNG. She has a h/o CAD and COPD. LexiScan nuclear stress test (07/31/22):1 . Abnormal myocardial perfusion study.2. There is a large size, moderate intensity fixed perfusion defect in the mid to distal inferior and apical carrillo.This defect is consistent with an area of myocardial scar. No reversible perfusion defects.3. Normal LV size with reduced systolic function. Calculated ejection fraction 37%. Echocardio gram (09/15/22) :1. Concentric LVH with low normal LV function. LVEF 50+/- 5%2. Moderate mitral regurgitat ion3. Mild to moderate aortic regurgitat ion4. Pacer wire noted in the right heart5. No significan t change compared to previous study done at [facility] on 03/21/2021. Echocardio gram (07/08/23): LVEF=45-50 % with anteroapic al dyskinesis Normal RV size & function; normal atrial sizesNorma l aortic dimensions Moderate AI/Mild TR/Mild MRRVSP=26 mmHgNo pericardia l effusion LexiScan nuclear stress testing (07/08/23): 1. Fixed inferior mid to distal and apical defect suggestive of scar tissue.2. No obvious evidence of inducible ischemia or previous MI3. Abnormal LV function. LVEF- 39%4. Findings are similar to Myoview stress test done on 07/31/2022 RECOMMENDA TION: LexiScan to reassess for myocardial ischemia as cause of chest pain & CHEUNG Chest pain 51661969 R07. 9 Patient has chronic anginal type chest pain from coronary artery disease. She has history of inferior wall and apical wall scar seen on previous nuclear stress tests in 2021 and 2022. Per chart review, she has a history of a 90% distal RCA stenosis that was not amenable to PCI. Most recent echo revealed LVEF=45-50 %. Recommenda tions: LexiScan to further evaluate [id number] SRIKANTH HOOVER MD HEART STATION [address] [place] [address] 01/18/2025 11:41:44 01/19/2025 14:48:21 [id number] FER MONSALVE PA-C ORTHOPEDI [address] [place] [address] 03/20/2025 13:24:36 03/20/2025 15:26:00 History of revision of left total knee arthroplasty [id number] 05147 Z96.652 [id number] Patient is here today for yearly follow up Rev L TKA. Patient is very difficult of hearing and has some form of dementia, very difficult appointmen t trying to understand recent history from patietn and family at bedside. She has recently been admitted to for pneumonia for a few weeks and a fall. had recommende d no surgery but recommende d HHPT for strengthen ing. She has not followed back up. Encouraged her to keep her follow ups there. She was quite rude and demanding at her appointmen t today, tried to de-escalat e, but family admitted this was common and how she treated a lot of her providers and a lot of providers have discharged her from their care. 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 Radiograph s obtained today reveal intact revision hinge LTKA implants in good positionin g andalignme nt. Physical exam reveals good ROM without pain and a well-heale d surgical incision. Health Concerns Section Related Observation LastModified by Organization Detai ls LastModified Time None Recorded Concern Status LastModified by Organization Details LastModified Time None Recorded Advance Directives Directive None Recorded Payers Insurance Date Sequence Insurance Name Policy Number Policy Lan Covered Member ID Lan Member ID Guarantor Name 06/29/2025 [facility] ([place]) Rubi Basurto [id number] Rubi Basurto 08/11/2025 1 [place] Rubi Basurto [id number] Rubi Basurto Notes Date Note Type Note Provider Name and Address Organization Details Recorded Time 07/03/2024 text/html Ms. Basurto is a very pleasant, 83 y.o. patient with a h/o chronic chest pain, CAD, Medtronic pacemaker (MRI compatible) placed for 2:1 AV block in 2017, HTN, Hyperlipidemia, h/o CVA, and who has significant hearing problems who was last seen in the office on 01/06/24.She is s/p TKR with Dr. Jose earlier this year. Since that visit, the patient reports many symptoms, including chest pain, SOA, CHEUNG, PND, orthopnea, LE edema, palpitations, dizziness, and fatigue. She is here today for scheduled follow-up clinic visit. SRIKANTH HOOVER MD [address] [place], [address], [facility] 07/04/2024 14:38:35 09/12/2024 text/html ROS as noted in the HPI [id number] returns today in follow-up. She is now just over 6 months out from her revision TKA with IM nail removal. Overall, she continues to do well. Her pain has improved considerably. She does continue to ambulate with her walker, primarily for balance. She otherwise denies fevers, chills, or wound drainage. [id number] returns today in follow-up. She is now just over 3 months out from her revision left TKA with hardware removal. Overall, she continues to improve. She continues in home health physical therapy. She is ambulating with a walker. She denies fevers or chills. 04/12/24Patient is 6 weeks s/p L TKR w/HWR 03/01/24Pain is worse 08/31Currently taking <3 doses per day of narcotic.Ambulating with walkerPT: home health to start Denies fevers, chills, or wound drainage.They do not request a refill of pain medicine. Operative cultures NegativeCurrent Abx:ID Note in Chart: Not Available 03/22/24 Patient is 3 weeks s/p L TKR with HWR 03/01/24.Pain is worseCurrently taking 3-4 doses per day of narcotic.Ambulating with wheelchairPT: [facility] Denies fevers, chills, or wound drainage.They do not request a refill of pain medicine. Operative cultures NegativeCurrent Abx:ID Note in Chart: Yes LISA JOSE MD [address] [place], [address], [facility] 09/12/2024 17:42:08 10/04/2024 text/html ROS as noted in the HPI Ms. Basurto is a very pleasant, 84 y.o. 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 Jose earlier this year. Since that visit, the patient reports many symptoms, including chest pain, SOA, CHEUNG, PND, orthopnea, LE edema, palpitations, dizziness, and fatigue. She is here today for scheduled follow-up clinic visit SRIKANTH HOOVER MD [address] [place], [address], [facility] 10/06/2024 18:26:54 03/20/2025 text/html ROS as noted in the HPI [id number] is here today for 1 year post op visit from L TKA REV.Patient reports they are doing well.Any pain? YesAmbulating with walkerAny issues or concerns noDenies fevers, chills, or wound drainage. [id number] returns today in follow-up. She is now just over 6 months out from her revision TKA with IM nail removal. Overall, she continues to do well. Her pain has improved considerably. She does continue to ambulate with her walker, primarily for balance. She otherwise denies fevers, chills, or wound drainage. [id number] returns today in follow-up. She is now just over 3 months out from her revision left TKA with hardware removal. Overall, she continues to improve. She continues in home health physical therapy. She is ambulating with a walker. She denies fevers or chills. 04/12/24Patient is 6 weeks s/p L TKR w/HWR 03/01/24Pain is worse 08/31Currently taking <3 doses per day of narcotic.Ambulating with walkerPT: home health to start Denies fevers, chills, or wound drainage.They do not request a refill of pain medicine. Operative cultures NegativeCurrent Abx:ID Note in Chart: Not Available 03/22/24 Patient is 3 weeks s/p L TKR with HWR 03/01/24.Pain is worseCurrently taking 3-4 doses per day of narcotic.Ambulating with wheelchairPT: [facility] Denies fevers, chills, or wound drainage.They do not request a refill of pain medicine. Operative cultures NegativeCurrent Abx:ID Note in Chart: Yes FER MONSALVE PA-C [address] [place], [address], [facility] 03/20/2025 15:06:59 OBGyn Episode No OBEpisode recorded.
[2025-10-22 21:25] LABS: VBG HCO3 26.7 mmol/L (23-30); VBG PCO2 45.9 mmol/L (35-51); VBG PH 7.38 mmol/L (7.31-7.41); VBG PO2 32.0 mmol/L (28-40)
[2025-10-22 21:26] LABS: Lactate Venous 2.4 mmol/L (0.4-2.0)
[2025-10-22 21:32] LABS: Hematocrit 41.3 % (37.0-47.0); Hemoglobin 14.4 g/dL (12.2-16.2); Immature Granulocytes % 0.2 %; Mean Corpuscular HGB Conc 34.9 g/dL (31.8-35.4); Mean Corpuscular Hemoglobin 32.9 pg (27.0-31.2); Mean Corpuscular Volume 94.3 fl (81-99); Nucleated Red Blood Cells % 0 %; Platelet Count 216 K/mm3 (142-424); Red Blood Count 4.38 M/mm3 (4.20-5.40); Red Cell Distribution Width-SD 46.0 fL; White Blood Count 8.6 K/mm3 (4.8-10.8)
[2025-10-22 21:45] LABS: Alanine Aminotransferase 20 U/L (12-78); Albumin Level 4.6 g/dl (3.5-5.0); Albumin/Globulin Ratio 1.5 (1.1-1.8); Alkaline Phosphatase 96 U/L (38-126); Anion Gap 11.1 mEq/L (5-15); Aspartate Amino Transferase 30 U/L (14-36); Bilirubin,Total 0.7 mg/dl (0.2-1.3); Blood Urea Nitrogen 12 mg/dl (7-17); Calcium 9.4 mg/dl (8.4-10.2); Carbon Dioxide 26 mmol/L (22.0-30.0); Chloride 107 mmol/L (98-107); Creatinine Clearance Estimated 40 mL/min (50-200); Creatinine,Serum 0.80 mg/dl (0.52-1.04); Estimated Glomerular Filt Rate 69 ml/min (>60); GFR (African American) 83 ML/MIN (>60); Globulin 3.1 g/dL (1.3-3.2); Glucose 134 mg/dl (74-100); Potassium 4.1 mmoL/L (3.5-5.1); Sodium 140 mmol/L (136-145); Total Protein,Serum 7.7 g/dl (6.3-8.2)
[2025-10-22] MEDS: MORPHINE 4MG/ML SYRINGE 4 MG IV (21:45)
[2025-10-22 21:52] VITALS: PULSE 83
[2025-10-22] MEDS: IPRATROPIUM/ALBUTEROL 3 ML NEB IH (21:56)
[2025-10-22 21:57] LABS: NT Pro Brain Natriuretic Pep. 1340 pg/mL (0-450)
[2025-10-22 22:00] LABS: Troponin I < 0.01 ng/ml (0.00-0.034)
[2025-10-22 22:11] VITALS: O2SAT 95
[2025-10-22 22:24] VITALS: BP 184/95; PULSE 89; RESP 18; TEMP 36.6; O2SAT 100
[2025-10-22 22:38] LABS: Hepatitis C Ab Qual. W/ RFX NEGATIVE (Negative)
== END 2025-10-22 22:27 | disposition home or self-care (01) ==
PROVIDERS: Emergency Provider Student in an Organized Health Care Education/Training Program; PCP Family Medicine
DX: R07.89 Other chest pain (principal); R06.02 Shortness of breath; R74.02 Elevation of levels of lactic acid dehydrogenase [LDH]; Z66 Do not resuscitate
CPT/HCPCS: 71045; 80053; 82803; 83880; 84484; 85025; 86803; 87389; 93005; 96374; 99284; J2270